=== PATIENT | male | born 1950 | race Caucasian/White ===

== ENCOUNTER 2018-05-09 09:54 | Inpatient (IN) ==
[2018-05-09 10:14] LABS: Baso # (Auto) 0.1 th/mm3 (0.0-0.2); Baso % (Auto) 0.5 % (0.0-2.0); Eos # (Auto) 0.1 th/mm3 (0.0-0.4); Eos % (Auto) 1.1 % (0.0-4.0); Hematocrit 38.6 % (39.0-51.0); Lymph # (Auto) 1.5 th/mm3 (1.0-4.8); Lymph % (Auto) 12.8 % (9.0-44.0); Mean Corpuscular HGB Conc 33.8 % (32.0-36.0); Mean Corpuscular Hemoglobin 35.6 pg (27.0-34.0); Mean Corpuscular Volume 105.4 fL (80.0-100.0); Mean Platelet Volume 9.2 fL (7.0-11.0); Mono # (Auto) 0.5 th/mm3 (0.0-0.9); Mono % (Auto) 4.4 % (0.0-8.0); Neut # (Auto) 9.2 th/mm3 (1.8-7.7); Neut % (Auto) 81.2 % (16.0-70.0); Platelet Count 186 th/mm3 (150-450); Red Blood Count 3.66 mil/mm3 (4.50-5.90); White Blood Count 11.4 th/mm3 (4.0-11.0)
--- NOTE | 2018-05-09 10:15 | XR ---
EXAM DATE: 05/09/2018 9:55 AM EDT AGE/SEX: 89 years / Male INDICATIONS: Trauma alert, fall. CLINICAL DATA: This is the patient's initial encounter. Patient reports that signs and symptoms have been present for 1 day and indicates a pain score of 8/10. MEDICAL/SURGICAL HISTORY: Non-responsive. Non-responsive. COMPARISON: . FINDINGS: Lungs are under aerated but clear. The heart and pulmonary vascularity are normal. Probable fracture right proximal humerus. CONCLUSION: Lungs are under aerated. Probable fracture right humerus. Shoulder films are suggested. Electronically signed by: Toño Burks MD 05/09/2018 10:14 AM EDT
--- NOTE | 2018-05-09 10:17 | XR ---
EXAM DATE: 05/09/2018 12:00 AM EDT AGE/SEX: 89 years / Male INDICATIONS: Trauma alert, fall. CLINICAL DATA: This is the patient's initial encounter. Patient reports that signs and symptoms have been present for 1 day and indicates a pain score of Nonresponsive. MEDICAL/SURGICAL HISTORY: Non-responsive. Non-responsive. COMPARISON: [facility] – [place], PELVIS AP 1V, 05/09/2018. . FINDINGS: Ramus fracture on the right. Anatomic alignment about the right hip without fracture. CT scan pending . CONCLUSION: Negative for hip fracture Ramus fracture. Electronically signed by: Toño Burks MD 05/09/2018 10:16 AM EDT
--- NOTE | 2018-05-09 10:17 | XR ---
EXAM DATE: 05/09/2018 9:55 AM EDT AGE/SEX: 89 years / Male INDICATIONS: Trauma alert, fall. CLINICAL DATA: This is the patient's initial encounter. Patient reports that signs and symptoms have been present for 1 day and indicates a pain score of Nonresponsive. MEDICAL/SURGICAL HISTORY: Non-responsive. Non-responsive. COMPARISON: No prior exams available for comparison. FINDINGS: Degenerative changes about both hips. Anatomic alignment. Fracture superior and inferior pubic ramus on the right. CT scan pending. CONCLUSION: Ramus fracture on the right. Anatomic alignment about both hips. Electronically signed by: Toño Burks MD 05/09/2018 10:16 AM EDT
--- NOTE | 2018-05-09 10:18 | XR ---
EXAM DATE: 05/09/2018 10:00 AM EDT AGE/SEX: 89 years / Male INDICATIONS: Trauma alert, fall. CLINICAL DATA: This is the patient's initial encounter. Patient reports that signs and symptoms have been present for 1 day and indicates a pain score of 10/10. MEDICAL/SURGICAL HISTORY: Non-responsive. Non-responsive. COMPARISON: No prior exams available for comparison. FINDINGS: Fracture proximal humerus with degenerative changes about the right shoulder. Anatomic alignment. CONCLUSION: Fracture proximal humerus. Electronically signed by: Toño Burks MD 05/09/2018 10:17 AM EDT
--- NOTE | 2018-05-09 10:20 | CT ---
EXAM DATE: 05/09/2018 10:03 AM EDT AGE/SEX: 89 years / Male INDICATIONS: Trauma alert, patient fell off ladder CLINICAL DATA: This is the patient's initial encounter. Patient reports that signs and symptoms have been present for 1 day and indicates a pain score of Nonresponsive. MEDICAL/SURGICAL HISTORY: None. None. RADIATION DOSE: 64.63 CTDI (mGy) COMPARISON: No prior exams available for comparison. TECHNIQUE: CT of the head without contrast. Using automated exposure control and adjustment of the mA and/or kV according to patient size, radiation dose was kept as low as reasonably achievable to ob tain optimal diagnostic quality images. DICOM format image data is available electronically for revi ew and comparison. FINDINGS: Cerebrum: The ventricles are normal for age. No evidence of midline shift, mass lesion, hemorrhage or acute infarction. No extraaxial fluid collections are seen. Posterior Fossa: The cerebellum and brainstem are intact. The 4th ventricle is midline. The cerebe llopontine angle is unremarkable. Extracranial: The visualized portion of the orbits is intact. Skull: The calvaria is intact. No evidence of skull fracture. CONCLUSION: 1. Negative for an acute process . Electronically signed by: Toño Burks MD 05/09/2018 10:19 AM EDT
[2018-05-09 10:27] LABS: Activated Partial Thrombo Time 24.6 sec (24.3-30.1); Prothrombin Time 10.6 sec (9.8-11.6)
[2018-05-09] MEDS ORDERED: HYDROmorphone PF Inj 2 MG/ML Vial IV.PUSH ONE (10:33)
--- NOTE | 2018-05-09 10:44 | CT ---
EXAM DATE: 05/09/2018 10:03 AM EDT AGE/SEX: 89 years / Male INDICATIONS: Trauma alert, patient fell off ladder CLINICAL DATA: This is the patient's initial encounter. Patient reports that signs and symptoms have been present for 1 day and indicates a pain score of Nonresponsive. MEDICAL/SURGICAL HISTORY: None. None. ORAL CONTRAST: No oral contrast ingested. RADIATION DOSE: 6.08 CTDI (mGy) ; Combined studies COMPARISON: No prior exams available for comparison. TECHNIQUE: Multiple contiguous axial images were obtained through the abdomen and pelvis following b olus infusion of 100 ml Omnipaque 350 (iohexol) nonionic water-soluble contrast as a cumulative dos e for multiple exams. No oral contrast ingested. Using automated exposure control and adjustment of the mA and/or kV according to patient size, radiation dose was kept as low as reasonably achievable t o obtain optimal diagnostic quality images. DICOM format image data is available electronically for review and comparison. FINDINGS: Lower Lungs: The visualized lower lungs are clear. Liver: The liver has a homogeneous density without space-occupying lesion. There is no dilation of th e biliary tree. Spleen: Homogeneous density without enlargement. Pancreas: Unremarkable without mass or calcification. Kidneys: Normal in size and shape. No evidence of mass or hydronephrosis. Adrenal Glands: Unremarkable. Aorta: The aorta and proximal iliac vessels are grossly unremarkable without aneurysmal dilation. Bowel/Mesentery: Uncomplicated colonic diverticulosis is noted. No acute diverticulitis is noted. Th ere is a diverticulum extending from the fundus of the stomach. Abdominal Wall: Intact. Retroperitoneum: No evidence of adenopathy in the retrocrural, para-aortic, or deep pelvic regions. Bladder: Contours are smooth. Reproductive Organs: No abnormal masses or calcifications seen. There is some presacral increased de nsity suggestive of hemorrhage from the adjacent sacral fracture. Inguinal: The inguinal region is unremarkable without evidence of adenopathy. Bony Structures: There is an acute comminuted fracture involving the inferior pubic ramus on the rig ht. There is also an acute fracture involving the right sacrum. There is a subtle nondisplaced fractu re involving the junction of the right superior pubic ramus and acetabulum anteriorly. Degenerative c hanges are noted throughout the thoracolumbar spine. Mild compression deformities are noted involving the lowest six thoracic vertebral bodies which are indeterminate in age but are likely chronic. Dege nerative changes and scoliosis of the thoracolumbar spine are noted. CONCLUSION: 1. Acute comminuted fracture involving the inferior pubic ramus on the right. There is also an acute fracture involving the right sacrum. There is a subtle nondisplaced fracture involving the junction of the right superior pubic ramus and acetabulum anteriorly. Degenerative changes are noted throughou t the thoracolumbar spine. Mild compression deformities are noted involving the lowest six thoracic v ertebral bodies which are indeterminate in age but are likely chronic. 2. Some presacral increased density suggestive of hemorrhage from the adjacent sacral fracture. 3. Uncomplicated colonic diverticulosis. 4. Degenerative changes and scoliosis of the thoracolumbar spine are noted. Electronically signed by: Singh Lundberg MD 05/09/2018 10:43 AM EDT
--- NOTE | 2018-05-09 10:49 | CT ---
EXAM DATE: 05/09/2018 10:03 AM EDT AGE/SEX: 89 years / Male INDICATIONS: Trauma alert, patient fell off ladder CLINICAL DATA: This is the patient's initial encounter. Patient reports that signs and symptoms have been present for 1 day and indicates a pain score of Nonresponsive. MEDICAL/SURGICAL HISTORY: None. None. RADIATION DOSE: 23.80 CTDI (mGy) COMPARISON: No prior exams available for comparison. TECHNIQUE: Contiguous axial images were obtained using helical multirow detector technique. The vol umetric data was post-processed with multiplanar reconstruction in oblique axial, sagittal, and coron al planes. Using automated exposure control and adjustment of the mA and/or kV according to patient s ize, radiation dose was kept as low as reasonably achievable to obtain optimal diagnostic quality hien ges. DICOM format image data is available electronically for review and comparison. FINDINGS: Vertebrae: Normal vertebral body height. Alignment: Normal. No subluxation. C2-3: The bony spinal canal is normal in size. No evidence of disc bulge or herniation. The neural foramina are bilaterally patent. C3-4: Mild uncinate ridging without significant neural foraminal encroachment or spinal stenosis. C4-5: The bony spinal canal is normal in size. No evidence of disc bulge or herniation. The neural foramina are bilaterally patent. C5-6: Moderate uncinate ridging with minimal bilateral neural foraminal encroachment worse on the ri ght. Spinal stenosis is mild C6-7: Moderate uncinate ridging with minimal neural foraminal encroachment. C7-T1: The bony spinal canal is normal in size. No evidence of disc bulge or herniation. The neura l foramina are bilaterally patent. CONCLUSION: 1. Mild degenerative changes. Anatomic alignment without fracture. Electronically signed by: Toño Burks MD 05/09/2018 10:48 AM EDT
--- NOTE | 2018-05-09 10:56 | CT ---
EXAM DATE: 05/09/2018 12:00 AM EDT AGE/SEX: 89 years / Male INDICATIONS: Trauma alert, patient fell off ladder CLINICAL DATA: This is the patient's initial encounter. Patient reports that signs and symptoms have been present for 1 day and indicates a pain score of Nonresponsive. MEDICAL/SURGICAL HISTORY: None. None. RADIATION DOSE: 6.08 CTDI (mGy) ; Combined studies COMPARISON: No prior exams available for comparison. TECHNIQUE: Multiple contiguous axial images were obtained through the chest during bolus infusion of 100 ml Omnipaque 350 (iohexol) nonionic water-soluble contrast as a cumulative dose for multiple ex ams. Images were obtained in suspended respiration using multiple row detector helical technique. Using automated exposure control and adjustment of the mA and/or kV according to patient size, radiat ion dose was kept as low as reasonably achievable to obtain optimal diagnostic quality images. DICOM format image data is available electronically for review and comparison. FINDINGS: Lungs: The lungs are symmetrically aerated. No infiltrates or nodular densities are seen. Mediastinum: There is good visualization of the great vessels of the middle mediastinum. No evidenc e of mediastinal or hilar adenopathy/mass. Pleurae: No evidence of focal thickening or pleural effusion. Axillae: Unremarkable. Bony Structures: There is an acute comminuted displaced fracture involving the right proximal humeru s. Degenerative changes and scoliosis of the thoracic spine are noted. Multiple mild compression defo rmities are noted involving the lowest six thoracic vertebral bodies which are likely chronic. Clinic al correlation is recommended. Miscellaneous: The examination was extended to include the upper abdomen, and both adrenal glands ar e normal in size and configuration. CONCLUSION: 1. Acute comminuted displaced fracture involving the right proximal humerus. 2. Degenerative changes and scoliosis of the thoracic spine are noted. 3. Multiple mild compression deformities are noted involving the lowest six thoracic vertebral imani s which are likely chronic. Clinical correlation is recommended. Electronically signed by: Singh Lundberg MD 05/09/2018 10:54 AM EDT
--- NOTE | 2018-05-09 11:10 | ED ---
HPI General Chief Complaint: Trauma Alert Stated Complaint: Trauma alert Time Seen by Provider: 05/09/18 10:33 Source: patient and EMS Mode of arrival: EMS Limitations: physical limitation History of Present Illness HPI narrative: 67-year-old male complains of right shoulder pain, right hip pain. Patient fell off a ladder about 10 feet height this morning. Patient denies loss of consciousness. Patient denies any headache or neck pain. Patient complains of sharp pain localized to right shoulder and posterior aspect the right hip. Patient denies any chest pain or shortness of breath. Patient denies abdominal pain. Patient denies any focal weakness or numbness of the extremity. Patient states that he is on blood thinner however unable to tell me the name of the medication. Patient has history of TIA. Related Data Home Medications Medication Instructions Recorded Confirmed Unable to Obtain Home Meds 05/09/18 05/09/18 Allergies Allergy/AdvReac Type Severity Reaction Status Date / Time No Known Allergies Allergy Unverified 05/09/18 10:36 Review of Systems ROS: all other systems reviewed are negative [facility] Medical History Medical History CVA (cerebral vascular accident) (Acute) HTN (hypertension) (Acute) Social History Social History Substance History: No History of Abuse Smoking Status: Never smoker How Often Do You Have a Drink Containing Alcohol: Never Recent Travel in [facility] within the Last 8 Weeks: No Recent Out of Country Travel within the Last 8 Weeks: No Immunization History Tetanus Immunization: <5 Years Hx Influenza Vaccine This Season: No Exam Narrative Exam Narrative: GENERAL: Well-nourished, well-developed patient. SKIN: Focused skin assessment warm/dry. HEAD: Normocephalic. EYES: No scleral icterus. No injection or drainage. Pupils 1.5 mm equal reactive. NECK: Supple, trachea midline. No JVD or lymphadenopathy. No neck tenderness on palpation. CARDIOVASCULAR: Regular rate and rhythm without murmurs, gallops, or rubs. RESPIRATORY: Breath sounds equal bilaterally. No accessory muscle use. GASTROINTESTINAL: Abdomen soft, non-tender, nondistended. MUSCULOSKELETAL: Patient has moderate swelling with moderate tenderness to palpation of the right shoulder joint. Limited range of motion at the right shoulder secondary to pain. Sensory motor function distally intact. Patient has mild to moderate tenderness palpation posterior aspect the right hip joint. Full range of motion the right hip joint. Neurologic exam normal. BACK: Nontender without obvious deformity. No CVA tenderness. Course Initial Documented Vital Signs Pulse Oximetry 98 05/09/18 10:09 Last Documented Vital Signs Pulse Rate 63 05/09/18 10:32 Respiratory Rate 17 05/09/18 10:32 Blood Pressure 168/70 H 05/09/18 10:32 Pulse Oximetry 98 05/09/18 10:32 Medical Decision Making MDM Narrative Medical decision making narrative: 67-year-old male with right shoulder and right hip injury. Status post fall off a ladder. Medical Screen Exam Complete: Yes Emergency Medical Condition: Yes Lab Data Lab results reviewed: Yes I reviewed the patient's lab results. Result diagrams: 05/09/18 09:57 Lab Results 05/09/18 05/09/18 05/09/18 Range/Units 09:57 09:57 09:57 WBC 11.4 H (4.0-11.0) th/mm3 RBC 3.66 L (4.50-5.90) mil/mm3 Hgb 13.0 (13.0-17.0) gm/dL POC Hgb (Calc) 12.2 L (13.0-17.0) g/dL Hct 38.6 L (39.0-51.0) % POC Hct 36.0 L (39-51.0) % MCV 105.4 H (80.0-100.0) fL MCH 35.6 H (27.0-34.0) pg MCHC 33.8 (32.0-36.0) % RDW 12.0 (11.6-17.2) % Plt Count 186 (150-450) th/mm3 MPV 9.2 (7.0-11.0) fL Neut % (Auto) 81.2 H (16.0-70.0) % Lymph % (Auto) 12.8 (9.0-44.0) % Hancock % (Auto) 4.4 (0.0-8.0) % Eos % (Auto) 1.1 (0.0-4.0) % Baso % (Auto) 0.5 (0.0-2.0) % Neut # (Auto) 9.2 H (1.8-7.7) th/mm3 Lymph # (Auto) 1.5 (1.0-4.8) th/mm3 Hancock # (Auto) 0.5 (0.0-0.9) th/mm3 Eos # (Auto) 0.1 (0.0-0.4) th/mm3 Baso # (Auto) 0.1 (0.0-0.2) th/mm3 WBC Differential . Differential Comment Auto diff final PT 10.6 (9.8-11.6) sec INR 1.0 Ratio APTT 24.6 (24.3-30.1) sec POC Sodium 138 (137-144) mmol/L POC Potassium 4.3 (3.6-5.0) mmol/L POC Chloride 103 (102-111) mmol/L POC BUN 11 (5-21) mg/dL POC Creatinine 0.9 (0.6-1.3) mg/dL POC Glucose 129 H (68-110) mg/dL Blood Type Antibody Screen 05/09/18 Range/Units 09:57 WBC (4.0-11.0) th/mm3 RBC (4.50-5.90) mil/mm3 Hgb (13.0-17.0) gm/dL POC Hgb (Calc) (13.0-17.0) g/dL Hct (39.0-51.0) % POC Hct (39-51.0) % MCV (80.0-100.0) fL MCH (27.0-34.0) pg MCHC (32.0-36.0) % RDW (11.6-17.2) % Plt Count (150-450) th/mm3 MPV (7.0-11.0) fL Neut % (Auto) (16.0-70.0) % Lymph % (Auto) (9.0-44.0) % Hancock % (Auto) (0.0-8.0) % Eos % (Auto) (0.0-4.0) % Baso % (Auto) (0.0-2.0) % Neut # (Auto) (1.8-7.7) th/mm3 Lymph # (Auto) (1.0-4.8) th/mm3 Hancock # (Auto) (0.0-0.9) th/mm3 Eos # (Auto) (0.0-0.4) th/mm3 Baso # (Auto) (0.0-0.2) th/mm3 WBC Differential Differential Comment PT (9.8-11.6) sec INR Ratio APTT (24.3-30.1) sec POC Sodium (137-144) mmol/L POC Potassium (3.6-5.0) mmol/L POC Chloride (102-111) mmol/L POC BUN (5-21) mg/dL POC Creatinine (0.6-1.3) mg/dL POC Glucose (68-110) mg/dL Blood Type O Positive Antibody Screen Negative Imaging Data Attestation: I personally reviewed and interpreted this imaging study as follows : Radiologist's impression: Chest CT 05/09/18 00:00 CONCLUSION: 1. Acute comminuted displaced fracture involving the right proximal humerus. 2. Degenerative changes and scoliosis of the thoracic spine are noted. 3. Multiple mild compression deformities are noted involving the lowest six thoracic vertebral bodies which are likely chronic. Clinical correlation is recommended. Hip X-Ray 05/09/18 00:00 CONCLUSION: Negative for hip fracture Ramus fracture. Chest X-Ray 05/09/18 09:55 CONCLUSION: Lungs are under aerated. Probable fracture right humerus. Shoulder films are suggested. Pelvis X-Ray 05/09/18 09:55 CONCLUSION: Ramus fracture on the right. Anatomic alignment about both hips. Shoulder X-Ray 05/09/18 10:00 CONCLUSION: Fracture proximal humerus. Abdomen/Pelvis CT 05/09/18 10:01 CONCLUSION: 1. Acute comminuted fracture involving the inferior pubic ramus on the right. There is also an acute fracture involving the right sacrum. There is a subtle nondisplaced fracture involving the junction of the right superior pubic ramus and acetabulum anteriorly. Degenerative changes are noted throughout the thoracolumbar spine. Mild compression deformities are noted involving the lowest six thoracic vertebral bodies which are indeterminate in age but are likely chronic. 2. Some presacral increased density suggestive of hemorrhage from the adjacent sacral fracture. 3. Uncomplicated colonic diverticulosis. 4. Degenerative changes and scoliosis of the thoracolumbar spine are noted. Cervical Spine CT 05/09/18 10:01 CONCLUSION: 1. Mild degenerative changes. Anatomic alignment without fracture. Head CT 05/09/18 10:01 CONCLUSION: 1. Negative for an acute process . Discharge Plan Discharge Disposition Patient Disposition: 30 Still Patient Discharge Details Diagnosis: Fracture of humerus, right, closed, Fracture of multiple pubic rami, Closed fracture of sacrum Physicians Team ED Provider: Reza Bragg Primary Care Provider: UNKNOWN, Rxs /Orders / Referrals /Forms Prescriptions: No Action Unable to Obtain Home Meds RF: 0 Status ED Status: With Doctor
--- NOTE | 2018-05-09 13:47 | P.HPCC ---
History of Present Illness Primary Care Physician: UNKNOWN History of Present Illness: 67 y.o male fell from the ladder 10 feet,c/o pain right humerus and pelvis was level 2 trauma alert-worked up by the ER.HD normal,neuro intact. Inpatient Certification: I certify that the inpatient services were ordered in accordance with Medicare regulations governing the order. This includes certification that hospital inpatient services are reasonable and necessary and in the case of services not specified as inpatient-only under 42 CFR 419.22(n), that they are appropriately provided as inpatient services in accordance to with the 2-midnight benchmark under 43 CFR 412.3(e) Estimated Total Length of Stay (Days): 3 Plans for Post Hospital Care: Not yet determined Review of Systems All other systems reviewed negative except as stated in HPI [facility] - History History Provided By: Patient - Medical History Medical History: Medical History (Last Reviewed 05/09/18 @ 11:05 by Reza Bragg MD) CVA (cerebral vascular accident) HTN (hypertension) - Tobacco History Smoking Status: Never smoker - Alcohol History How Often Do You Have a Drink Containing Alcohol: Never - Substance Use History Substance History: No History of Abuse - Travel History Recent Travel in the [place] Within the Last 8 Weeks: No Recent Travel Out of the Country Within the Last 8 Weeks: No - Immunization History Tetanus Immunization: <5 Years Hx Influenza Vaccine This Season: No Medications and Allergies Active Medications: Active Medications Al Hydroxide/Mg Hydroxide (Milk Of Magnesia Liq) 30 ml PO BID [facility] Chlorhexidine Gluconate (Chlorhexidine 2% Cloth) 3 pack TOPICAL DAILY@0400 [facility] Stop: 05/15/18 03:59 Chlorhexidine Gluconate (Chlorhexidine 2% Cloth) 3 pack TOPICAL DAILY@0400 PRN PRN Reason: Extra cloth needed Stop: 05/15/18 03:59 Docusate Sodium (Colace) 100 mg PO BID [facility] Enalaprilat (Vasotec Inj) 1.25 mg IV.PUSH Q8H PRN PRN Reason: Blood pressure 180/95 Lactulose (Lactulose Liq) 30 ml PO DAILY PRN PRN Reason: CONSTIPATION Morphine Sulfate (Morphine Inj) 2 mg IV.PUSH Q3H PRN PRN Reason: BREAKTHROUGH PAIN Ondansetron HCl (Zofran Inj) 4 mg IV.PUSH Q6H PRN PRN Reason: NAUSEA OR VOMITING Oxycodone/Acetaminophen (Percocet 7.5/325 Mg) 1 tab PO Q4H PRN PRN Reason: Acute Pain 6-10 Oxycodone/Acetaminophen (Percocet 5/325 Mg) 1 tab PO Q4H PRN PRN Reason: Acute Pain 1-5 Pantoprazole Sodium (Protonix Inj) 40 mg IV.PUSH Q24H [facility] Sodium Chloride (Ns Flush) 2 ml IV.FLUSH UNSCH PRN PRN Reason: FLUSH AFTER USING IV ACCESS Allergies Allergy/AdvReac Type Severity Reaction Status Date / Time No Known Allergies Allergy Unverified 05/09/18 10:36 Home Medications Medication Instructions Recorded Confirmed Type Unable to Obtain Home Meds 05/09/18 05/09/18 History Results - Labs CBC & Chem 7: 05/09/18 09:57 Labs: Short CBC 05/09/18 Range/Units 09:57 WBC 11.4 H (4.0-11.0) th/mm3 Hgb 13.0 (13.0-17.0) gm/dL Hct 38.6 L (39.0-51.0) % Plt Count 186 (150-450) th/mm3 - Imaging Impressions Chest CT 05/09/18 00:00 CONCLUSION: 1. Acute comminuted displaced fracture involving the right proximal humerus. 2. Degenerative changes and scoliosis of the thoracic spine are noted. 3. Multiple mild compression deformities are noted involving the lowest six thoracic vertebral bodies which are likely chronic. Clinical correlation is recommended. Hip X-Ray 05/09/18 00:00 CONCLUSION: Negative for hip fracture Ramus fracture. Chest X-Ray 05/09/18 09:55 CONCLUSION: Lungs are under aerated. Probable fracture right humerus. Shoulder films are suggested. Pelvis X-Ray 05/09/18 09:55 CONCLUSION: Ramus fracture on the right. Anatomic alignment about both hips. Shoulder X-Ray 05/09/18 10:00 CONCLUSION: Fracture proximal humerus. Abdomen/Pelvis CT 05/09/18 10:01 CONCLUSION: 1. Acute comminuted fracture involving the inferior pubic ramus on the right. There is also an acute fracture involving the right sacrum. There is a subtle nondisplaced fracture involving the junction of the right superior pubic ramus and acetabulum anteriorly. Degenerative changes are noted throughout the thoracolumbar spine. Mild compression deformities are noted involving the lowest six thoracic vertebral bodies which are indeterminate in age but are likely chronic. 2. Some presacral increased density suggestive of hemorrhage from the adjacent sacral fracture. 3. Uncomplicated colonic diverticulosis. 4. Degenerative changes and scoliosis of the thoracolumbar spine are noted. Cervical Spine CT 05/09/18 10:01 CONCLUSION: 1. Mild degenerative changes. Anatomic alignment without fracture. Head CT 05/09/18 10:01 CONCLUSION: 1. Negative for an acute process . Exam Vital signs: Vital Signs 05/09/18 10:09 05/09/18 10:32 05/09/18 11:47 Pulse Rate 63 63 Respiratory Rate 17 17 Blood Pressure 168/70 H 148/65 H Pulse Oximetry 98 98 96 05/09/18 12:02 Pulse Rate Respiratory Rate 16 Blood Pressure Pulse Oximetry Intake & Output 05/08/18 05/09/18 05/09/18 18:59 06:59 18:59 Weight 76.204 kg - Constitutional no acute distress - Routine HEENT Exam Head: Present: normocephalic, atraumatic Eye: Present: EOMI, PERRL, normal accommodation ENT: Present: mucous membranes moist, oropharynx clear, external ear normal, TM' s clear bilaterally - Routine Neck Exam Present: supple, full ROM, trachea midline - Routine Respiratory Exam Present: CTA bilaterally - Routine Cardiovascular Exam Present: RRR - Routine Abdominal Exam Present: soft, normoactive bowel sounds - Routine Extremities Exam Present: full ROM, pulses intact, normal capillary refill Comments: swelling right UE - Routine Skin Exam Present: intact - Routine Neurological Exam Present: alert, oriented X3 Caprini VTE Risk Assessment Caprini VTE Risk Assessment: Moderate/High Risk (score >= 2) VTE Pharmacological Exception Reason: High risk for bleeding (TRA) Caprini Risk Assessment Model: Point Value = 1 Point Value = 2 Point Value = 3 Point Value = 5 Age 41-60 Minor surgery BMI > 25 kg/m2 Swollen legs Varicose veins or History of unexplained or recurrent spontaneous Oral contraceptives or hormone replacement Sepsis (< 1 month) Serious lung disease, including pneumonia (< 1 month) Abnormal pulmonary function Acute myocardial infarction Congestive heart failure (< 1 month) History of inflammatory bowel disease Medical patient at bed rest Age 61-74 Arthroscopic surgery Major open surgery (> 45 min) Laparoscopic surgery (> 45 min) Malignancy Confined to bed (> 72 hours) Immobilizing plaster cast Central venous access Age >= 75 History of VTE Family history of VTE Factor V Leiden Prothrombin [id number] Lupus anticoagulant Anticardiolipin antibodies Elevated serum homocysteine Heparin-induced thrombocytopenia Other congenital or acquired thrombophilia Stroke (< 1 month) Elective arthroplasty Hip, pelvis, or leg fracture Acute spinal cord injury (< 1 month) Prophylaxis Regimen: Total Risk Factor Score Risk Level Prophylaxis Regimen 0-1 Low Early ambulation 2 Moderate Order ONE of the following: *Sequential Compression Device (SCD) *Heparin 5000 units SQ BID 3-4 Higher Order ONE of the following medications: *Heparin 5000 units SQ TID *Enoxaparin/Lovenox 40 mg SQ daily (WT < 150 kg, CrCl > 30 mL/min) *Enoxaparin/Lovenox 30 mg SQ daily (WT < 150 kg, CrCl > 10-29 mL/min) *Enoxaparin/Lovenox 30 mg SQ BID (WT < 150 kg, CrCl > 30 mL/min) AND/OR *Sequential Compression Device (SCD) 5 or more Highest Order ONE of the following medications: *Heparin 5000 units SQ TID (Preferred with Epidurals) *Enoxaparin/Lovenox 40 mg SQ daily (WT < 150 kg, CrCl > 30 mL/min) *Enoxaparin/Lovenox 30 mg SQ daily (WT < 150 kg, CrCl > 10-29 mL/min) *Enoxaparin/Lovenox 30 mg SQ BID (WT < 150 kg, CrCl > 30 mL/min) AND *Sequential Compression Device (SCD) Assessment and Plan - Assessment and Plan Plan: right humerus fx sacral fx pubic rami fx admit to floor pain control sling to [facility] consult home meds-patient claims to be on blood thinners-cannot remember the name
[2018-05-09] MEDS: Morphine Sulfate Inj 2 MG/ML Vial IV.PUSH PRN ×3 (14:37→20:16)
[2018-05-09] MEDS: Pantoprazole Inj 40 MG Vial IV.PUSH SCH (16:07)
[2018-05-09] MEDS: Docusate Sodium 100 MG Capsule PO SCH (20:17)
--- NOTE | 2018-05-09 22:29 | P.CONOP ---
[facility] Orthopedics Consult Note - [facility] Consult date: 05/09/18 Consult reason: fracture Chief complaint: Fracture right humerus. Pelvis fracture Narrative: 67 year old RHD male presents after fall from ladder with right shoulder and right hip pain. States he was a few feet up on the ladder when the bottom slipped from under him causing him to fall on the right side. He states he did hit his head, but did not lose consciousness. Currently most severe pain is in the right shoulder. It is exacerbated with any movement. He also notes some tingling in the ulnar nerve distribution. Pain is improved with ice and sling immobilization. He also notes pain to the right hip which is worse with weight bearing and better with rest. Denies any numbness or tingling in the lower extremities. No bowel or bladder issues. Of note, he is on a blood thinner at home for a TIA but does not recall which one. Review of Systems All other systems reviewed negative except as stated in HPI Musculoskeletal: Reports joint pain, Reports joint swelling PMFSH - History History Provided By: Patient - Medical History Medical History: Medical History (Last Reviewed 05/09/18 @ 21:57 by Caitlin Montano MD) CVA (cerebral vascular accident) HTN (hypertension) - Social History I have reviewed the patient's Social History: Yes - Tobacco History Second Hand Smoke Exposure: No Smoking Status: Never smoker - Alcohol History How Often Do You Have a Drink Containing Alcohol: 2 to 4 times a month - Substance Use History Substance History: No History of Abuse - Travel History Recent Travel in the [place] Within the Last 8 Weeks: No Recent Travel Out of the Country Within the Last 8 Weeks: No - Immunization History Tetanus Immunization: <5 Years Hx Influenza Vaccine This Season: No Medications and Allergies Active Medications: Active Medications Al Hydroxide/Mg Hydroxide (Milk Of Reece Bowles) 30 ml PO BID [facility] Last Admin: 05/09/18 20:17 Dose: 30 ml Chlorhexidine Gluconate (Chlorhexidine 2% Cloth) 3 pack TOPICAL DAILY@0400 [facility] Stop: 05/15/18 03:59 Chlorhexidine Gluconate (Chlorhexidine 2% Cloth) 3 pack TOPICAL DAILY@0400 PRN PRN Reason: Extra cloth needed Stop: 05/15/18 03:59 Docusate Sodium (Colace) 100 mg PO BID [facility] Last Admin: 05/09/18 20:17 Dose: 100 mg Enalaprilat (Vasotec Inj) 1.25 mg IV.PUSH Q8H PRN PRN Reason: Blood pressure 180/95 Lactulose (Lactulose Liq) 30 ml PO DAILY PRN PRN Reason: CONSTIPATION Morphine Sulfate (Morphine Inj) 2 mg IV.PUSH Q3H PRN PRN Reason: BREAKTHROUGH PAIN Last Admin: 05/09/18 20:16 Dose: 2 mg Ondansetron HCl (Zofran Inj) 4 mg IV.PUSH Q6H PRN PRN Reason: NAUSEA OR VOMITING Oxycodone/Acetaminophen (Percocet 7.5/325 Mg) 1 tab PO Q4H PRN PRN Reason: Acute Pain 6-10 Last Admin: 05/09/18 18:40 Dose: 1 tab Oxycodone/Acetaminophen (Percocet 5/325 Mg) 1 tab PO Q4H PRN PRN Reason: Acute Pain 1-5 Pantoprazole Sodium (Protonix Inj) 40 mg IV.PUSH Q24H [facility] Last Admin: 05/09/18 16:07 Dose: 40 mg Sodium Chloride (Ns Flush) 2 ml IV.FLUSH UNSCH PRN PRN Reason: FLUSH AFTER USING IV ACCESS Allergies Allergy/AdvReac Type Severity Reaction Status Date / Time No Known Allergies Allergy Unverified 05/09/18 10:36 Home Medications Medication Instructions Recorded Confirmed Type acetaminophen 325 mg PO TID 05/10/18 05/10/18 History clopidogrel 75 mg PO DAILY 05/10/18 05/10/18 History lisinopril 10 mg PO DAILY 05/10/18 05/10/18 History meloxicam 7.5 mg PO DAILY 05/10/18 05/10/18 History simvastatin 40 mg PO QPM 05/10/18 05/10/18 History Exam Vital signs: Vital Signs 05/09/18 10:09 05/09/18 10:32 05/09/18 11:47 Temperature Pulse Rate 63 63 Respiratory Rate 17 17 Blood Pressure 168/70 H 148/65 H Pulse Oximetry 98 98 96 05/09/18 12:02 05/09/18 14:10 05/09/18 16:00 Temperature 98.4 F 98.2 F Pulse Rate 59 L 64 Respiratory Rate 16 16 16 Blood Pressure 140/65 145/68 H Pulse Oximetry 99 98 05/09/18 20:00 Temperature 98.5 F Pulse Rate 69 Respiratory Rate 17 Blood Pressure 120/64 Pulse Oximetry 93 L Intake & Output 05/09/18 05/09/18 05/10/18 06:59 18:59 06:59 Weight 76.204 kg Other: # Voids 3 Date of Last Bowel Movement 05/09/18 05/09/18 Weight On Admission 76.204 kg - Constitutional no acute distress, cooperative - Routine HEENT Exam Head: Present: normocephalic, atraumatic - Routine Neck Exam Present: supple, full ROM - Routine Respiratory Exam Absent: accessory muscle use - Routine Cardiovascular Exam Present: RRR - Detailed Upper Extremity Exam Shoulder/Upper Arm: Right swelling, Right tenderness, Right pain with active ROM , Right pain with passive ROM - Detailed Lower Extremity Exam Hip: Right full ROM - Routine Back/Spine/Pelvis Exam Pelvis: Present: pain with lateral compression of the pelvis Comments: no pain with log roll or hip ROM, neurovascularly intact distally - Routine Skin Exam Present: intact - Routine Neurological Exam Present: alert, oriented X3 Results - Labs Result Diagrams: 05/11/18 03:49 05/11/18 03:49 Labs: Laboratory Results - last 24 hr 05/09/18 05/09/18 05/09/18 09:57 09:57 09:57 WBC 11.4 H RBC 3.66 L Hgb 13.0 POC Hgb (Calc) 12.2 L Hct 38.6 L POC Hct 36.0 L MCV 105.4 H MCH 35.6 H MCHC 33.8 RDW 12.0 Plt Count 186 MPV 9.2 Neut % (Auto) 81.2 H Lymph % (Auto) 12.8 Alger % (Auto) 4.4 Eos % (Auto) 1.1 Baso % (Auto) 0.5 Neut # (Auto) 9.2 H Lymph # (Auto) 1.5 Alger # (Auto) 0.5 Eos # (Auto) 0.1 Baso # (Auto) 0.1 WBC Differential . Differential Comment Auto diff final PT 10.6 INR 1.0 APTT 24.6 POC Sodium 138 POC Potassium 4.3 POC Chloride 103 POC BUN 11 POC Creatinine 0.9 POC Glucose 129 H Blood Type Antibody Screen 05/09/18 09:57 WBC RBC Hgb POC Hgb (Calc) Hct POC Hct MCV MCH MCHC RDW Plt Count MPV Neut % (Auto) Lymph % (Auto) Alger % (Auto) Eos % (Auto) Baso % (Auto) Neut # (Auto) Lymph # (Auto) Alger # (Auto) Eos # (Auto) Baso # (Auto) WBC Differential Differential Comment PT INR APTT POC Sodium POC Potassium POC Chloride POC BUN POC Creatinine POC Glucose Blood Type O Positive Antibody Screen Negative - Diagnostic results Imaging: Impressions Chest CT 05/09/18 00:00 CONCLUSION: 1. Acute comminuted displaced fracture involving the right proximal humerus. 2. Degenerative changes and scoliosis of the thoracic spine are noted. 3. Multiple mild compression deformities are noted involving the lowest six thoracic vertebral bodies which are likely chronic. Clinical correlation is recommended. Hip X-Ray 05/09/18 00:00 CONCLUSION: Negative for hip fracture Ramus fracture. Chest X-Ray 05/09/18 09:55 CONCLUSION: Lungs are under aerated. Probable fracture right humerus. Shoulder films are suggested. Pelvis X-Ray 05/09/18 09:55 CONCLUSION: Ramus fracture on the right. Anatomic alignment about both hips. Shoulder X-Ray 05/09/18 10:00 CONCLUSION: Fracture proximal humerus. Abdomen/Pelvis CT 05/09/18 10:01 CONCLUSION: 1. Acute comminuted fracture involving the inferior pubic ramus on the right. There is also an acute fracture involving the right sacrum. There is a subtle nondisplaced fracture involving the junction of the right superior pubic ramus and acetabulum anteriorly. Degenerative changes are noted throughout the thoracolumbar spine. Mild compression deformities are noted involving the lowest six thoracic vertebral bodies which are indeterminate in age but are likely chronic. 2. Some presacral increased density suggestive of hemorrhage from the adjacent sacral fracture. 3. Uncomplicated colonic diverticulosis. 4. Degenerative changes and scoliosis of the thoracolumbar spine are noted. Cervical Spine CT 05/09/18 10:01 CONCLUSION: 1. Mild degenerative changes. Anatomic alignment without fracture. Head CT 05/09/18 10:01 CONCLUSION: 1. Negative for an acute process . Shoulder x-ray: report reviewed, image reviewed (proximal humerus fracture) Shoulder CT: pending Hip x-ray: report reviewed, image reviewed Hip CT: report reviewed, image reviewed (right superior and inferior pubic rami fractures, nondisplaced sacral fracture) Assessment and Plan - Problem List (1) Fracture of humerus, right, closed Code(s): S42.301A - Unspecified fracture of shaft of humerus, right arm, initial encounter for closed fracture Status: Acute Onset Date: ~05/09/18 Qualifiers: Encounter type: initial encounter Humerus Location: proximal Fracture morphology: other fracture Fracture alignment: displaced Qualified Code(s): S42.291A - Other displaced fracture of upper end of right humerus, initial encounter for closed fracture (2) Fracture of multiple pubic rami Code(s): S32.599A - Other specified fracture of unspecified pubis, initial encounter for closed fracture Status: Acute Qualifiers: Encounter type: initial encounter Fracture type: closed Laterality: right Qualified Code(s): S32.591A - Other specified fracture of right pubis, initial encounter for closed fracture (3) Closed fracture of sacrum Code(s): S32.10XA - Unspecified fracture of sacrum, initial encounter for closed fracture Status: Acute Qualifiers: Encounter type: initial encounter Zone of sacrum fracture: zone I of sacrum Fracture alignment: nondisplaced Qualified Code(s): S32.110A - Nondisplaced Zone I fracture of sacrum, initial encounter for closed fracture - Assessment and Plan Assessment: 67 year old male with right proximal humerus fracture and right lateral compression I pelvic ring injury Plan: 1. Will plan for operative treatment of right proximal humerus fracture with Dr. Retana - likely 05/11 2. Nonoperative treatment of pelvic fractures 3. NWB RUE in sling, protected WBAT RLE with walker
--- NOTE | 2018-05-10 00:37 | CT ---
EXAM DATE: 05/09/2018 11:11 PM EDT AGE/SEX: 67 years / Male INDICATIONS: Evaluate fracture. CLINICAL DATA: This is the patient's initial encounter. Patient reports that signs and symptoms have been present for 1 day and indicates a pain score of 10/10. MEDICAL/SURGICAL HISTORY: None. None. RADIATION DOSE: 6.04 CTDI (mGy) ; Reconstructed from previous dataset, no dose COMPARISON: No prior exams available for comparison. TECHNIQUE: Multiple contiguous axial images were acquired using a multirow detector CT scanner witho ut contrast. Multiplanar reconstruction was performed in the sagittal and coronal planes. Using aut omated exposure control and adjustment of the mA and/or kV according to patient size, radiation dose was kept as low as reasonably achievable to obtain optimal diagnostic quality images. DICOM format i mage data is available electronically for review and comparison. FINDINGS: FINDINGS: Bones: There is a comminuted fracture of the proximal humerus. There are 3 parts with a slightly dis placed greater tuberosity, humeral head and humeral shaft. There is significant angulation of the hum eral head with respect to the shaft. The glenoid appears intact. Remaining visualized osseous structu res are intact. Joints: Mild degenerative changes of the acromioclavicular joint. Mild osteophytes. Soft Tissues: Grossly unremarkable. Other: No foreign bodies seen. CONCLUSION: 1. Comminuted displaced 3 part humeral fracture, as above. Electronically signed by: Jon Vora MD 05/10/2018 12:35 AM EDT
[2018-05-10] MEDS: Morphine Sulfate Inj 2 MG/ML Vial IV.PUSH PRN ×5 (02:15→18:44)
[2018-05-10] MEDS ORDERED: Chlorhexidine Gluconate 2% 1 Pack (2 Cloths) TOPICAL ONE (03:58)
[2018-05-10] MEDS ORDERED: Sodium Chlor 0.9% Inj 500 ML IV.SIG SCH (04:00)
[2018-05-10] MEDS ORDERED: Chlorhexidine Gluconate 2% 1 Pack (2 Cloths) TOPICAL PRN (04:00)
[2018-05-10] MEDS ORDERED: Chlorhexidine Gluconate 2% 1 Pack (2 Cloths) TOPICAL SCH (04:00)
[2018-05-10 06:32] LABS: Baso % (Auto) 0.4 % (0.0-2.0); Eos # (Auto) 0.1 th/mm3 (0.0-0.4); Eos % (Auto) 0.8 % (0.0-4.0); Hematocrit 31.6 % (39.0-51.0); Hemoglobin 10.8 gm/dL (13.0-17.0); Lymph # (Auto) 0.9 th/mm3 (1.0-4.8); Mean Corpuscular HGB Conc 34.1 % (32.0-36.0); Mean Corpuscular Hemoglobin 36.3 pg (27.0-34.0); Mean Corpuscular Volume 106.4 fL (80.0-100.0); Mono # (Auto) 0.5 th/mm3 (0.0-0.9); Mono % (Auto) 6.7 % (0.0-8.0); Neut % (Auto) 80.1 % (16.0-70.0); Platelet Count 132 th/mm3 (150-450); Red Blood Count 2.97 mil/mm3 (4.50-5.90); Red Cell Distribution Width 12.2 % (11.6-17.2); White Blood Count 7.5 th/mm3 (4.0-11.0)
[2018-05-10 07:07] LABS: Albumin 3.5 g/dL (3.4-5.0); Anion Gap 9 meq/L (5-15); Aspartate Aminotransferase 33 U/L (15-37); Blood Urea Nitrogen 13 mg/dL (7-18); Calcium 8.2 mg/dL (8.5-10.1); Carbon Dioxide 24.1 meq/L (21.0-32.0); Chloride 105 meq/L (98-107); Glomerular Filtration Rate Greater Than 89 mL/min (>89); Glucose,Random 113 mg/dL (74-106); Potassium 4.2 meq/L (3.5-5.1); Sodium 138 meq/L (136-145)
[2018-05-10 07:08] LABS: Alanine Aminotransferase 30 U/L (12-78)
[2018-05-10 07:11] LABS: Alkaline Phosphatase 59 U/L (45-117); Total Protein 6.4 g/dL (6.4-8.2)
[2018-05-10] MEDS: Docusate Sodium 100 MG Capsule PO SCH ×2 (08:11→21:45)
--- NOTE | 2018-05-10 11:44 | P.PN ---
Subjective Interval history: TRAUMA PTD: 1 Pt sitting up in bed. No distress noted. at bedside. Pt states, "I'm still in pain." "So, I am having surgery?" states that "the physician last night said she was going to get another scan." Informed pt and that Dr. Montano ordered a RIGHT shoulder CT, and that was completed last night. Pt states, "No I didn't. I haven't left this room since I got here at 1:30pm yesterday." Clarified CT scan of shoulder in e[facility] and the results. Pt continues to insist that he did not have any scans yesterday. "Unless they took me while I was unconscious or something." Spoke with bedside nurse to clarify further if pt went for CT scan per Dr. Montano's orders last night. Physical Exam Vital signs: Vital Signs 05/09/18 11:47 05/09/18 12:02 05/09/18 14:10 Temperature 98.4 F Pulse Rate 63 59 L Respiratory Rate 17 16 16 Blood Pressure 148/65 H 140/65 Pulse Oximetry 96 99 05/09/18 16:00 05/09/18 20:00 05/09/18 22:07 Temperature 98.2 F 98.5 F Pulse Rate 64 69 Respiratory Rate 16 17 17 Blood Pressure 145/68 H 120/64 Pulse Oximetry 98 93 L 05/09/18 23:05 05/10/18 05:03 05/10/18 07:45 Temperature 98.2 F 98.5 F Pulse Rate 57 L 56 L 56 L Respiratory Rate 17 18 Blood Pressure 115/59 L 133/65 Pulse Oximetry 95 96 05/10/18 08:00 05/10/18 09:00 05/10/18 10:06 Temperature 98.1 F Pulse Rate 57 L 58 L Respiratory Rate 16 Blood Pressure 119/66 Pulse Oximetry 95 95 05/10/18 10:13 Temperature Pulse Rate Respiratory Rate 14 Blood Pressure Pulse Oximetry Intake & Output 05/09/18 05/10/18 05/10/18 18:59 06:59 18:59 Weight 76.204 kg Other: # Voids 3 1 Date of Last Bowel Movement 05/09/18 05/09/18 05/09/18 Weight On Admission 76.204 kg Narrative: GENERAL: This is a 67-year-old male lying in bed. No distress noted. SKIN: Warm and dry. HEAD: Atraumatic. Normocephalic. EYES: PERRLA ENT: No nasal bleeding or discharge. Mucous membranes pink and moist. NECK: Trachea midline. No JVD. CARDIOVASCULAR: Regular rate and rhythm. RESPIRATORY: No accessory muscle use. Lungs are clear to auscultation. Breath sounds equal bilaterally. No distress or dyspnea. GASTROINTESTINAL: BS + x 4 quads. Abdomen soft, non-tender, nondistended. MUSCULOSKELETAL: Extremities without cyanosis, or edema. + RIGHT upper extremity in sling. Peripheral pulses x 4 extremities. Warm with good capillary refill and sensation. MAEW. NEUROLOGICAL: Awake and alert. Normal speech and pattern. Results - Labs CBC & Chem 7: 05/10/18 03:45 05/10/18 03:45 Laboratory Results - last 24 hr 05/10/18 05/10/18 03:45 03:45 WBC 7.5 RBC 2.97 L Hgb 10.8 L D Hct 31.6 L MCV 106.4 H MCH 36.3 H MCHC 34.1 RDW 12.2 Plt Count 132 L MPV 10.0 Neut % (Auto) 80.1 H Lymph % (Auto) 12.0 [place] % (Auto) 6.7 Eos % (Auto) 0.8 Baso % (Auto) 0.4 Neut # (Auto) 6.0 Lymph # (Auto) 0.9 L [place] # (Auto) 0.5 Eos # (Auto) 0.1 Baso # (Auto) 0.0 WBC Differential . Differential Comment Auto diff final Sodium 138 Potassium 4.2 Chloride 105 Carbon Dioxide 24.1 Anion Gap 9 BUN 13 Creatinine 0.85 Estimated GFR Greater than 89 Random Glucose 113 H Calcium 8.2 L Total Bilirubin 0.6 AST 33 ALT 30 Alkaline Phosphatase 59 Total Protein 6.4 Albumin 3.5 - Imaging Impressions Shoulder CT 05/09/18 00:00 CONCLUSION: 1. Comminuted displaced 3 part humeral fracture, as above. Assessment and Plan - Assessment (1) Fracture of humerus, right, closed Code(s): S42.301A - Unspecified fracture of shaft of humerus, right arm, initial encounter for closed fracture Status: Acute Onset Date: ~05/09/18 (2) Fracture of multiple pubic rami Code(s): S32.599A - Other specified fracture of unspecified pubis, initial encounter for closed fracture Status: Acute (3) Closed fracture of sacrum Code(s): S32.10XA - Unspecified fracture of sacrum, initial encounter for closed fracture Status: Acute - Plan [place]: This is a 67-year old male who sustained a fall. He fell off a ladder, approximately 10 feet. He landed on his right side. No LOC. INJURIES: RIGHT humerus fx - 3 part fx Chronic thoracic compression fxs RIGHT inferior and superior pubic ramus fx (non-op) RIGHT sacrum fx (non-op) RIGHT acetabulum fx (non-op) PMHx: CVA. HTN. Procedures: 05/11: Plan for OR with orthopedics. Consults: Orthopedics. Case management. Diet: Regular diet. Tolerating po diet. Encourage good po intake with each meal. Pulmonary: Encourage good pulmonary toileting. IS at bedside and pt encouraged to use. Rationale for use explained to patient, and verbalized understanding. PAIN Management: Percocet 5-7.5 mg q 4h. Morphine 2 mg q 3h for breakthrough pain. Activity: BR. Pt and OT ordered. (NWB RUE. WBAT RLE) GI prophylaxis: Protonix IV Bowel regimen: Colace. MOM. Lactulose PRN. LBM: 0 DVT prophylaxis: Mechanical VTE with SCDs. Chemical management TBD DC Planning: Case management consulted for assistance with final discharge disposition. Awaiting PT assessment for discharge planning. Emotional support provided to patient and family at bedside and plan of care discussed. Discussed with RN at bedside. Discussed pt condition and plan of care with collaborating trauma surgeon. Patient is hemodynamically stable and being managed on the med/surg floor. The trauma team will round each day, and evaluate plan of care on a daily basis. RIGHT humerus fx - 3 part fx Chronic thoracic compression fxs RIGHT inferior and superior pubic ramus fx (non-op) RIGHT sacrum fx (non-op) RIGHT acetabulum fx (non-op) Orthopedics consulted and assisting in management and care CT right shoulder -shows a 3 part fracture. 05/11: Plan for OR with orthopedics for right humerus Pelvic fractures will remain nonoperative Supportive care Pain management PT and OT ordered NWB RUE WBAT RLE Bowel regimen HTN HLD Vitals q 4h Resume home medications Lisinopril 10 mg QD Simvastatin 40 mg QD - Attending Attestation Patient seen and examined with the nurse practitioners, orthopedic input appreciated CT scan of the fractured shoulder was obtained, plan is to proceed with surgical intervention, patient was to be oriented and reassured that he is CT scan of his shoulder was done. There could be some baseline dementia and I will have the medical team to see the patient (1) Fracture of humerus, right, closed Qualifiers: Encounter type: initial encounter Humerus Location: proximal Fracture morphology: other fracture Fracture alignment: displaced Qualified Code(s): S42.291A - Other displaced fracture of upper end of right humerus, initial encounter for closed fracture (2) Fracture of multiple pubic rami Qualifiers: Encounter type: initial encounter Fracture type: closed Laterality: right Qualified Code(s): S32.591A - Other specified fracture of right pubis, initial encounter for closed fracture (3) Closed fracture of sacrum Qualifiers: Encounter type: initial encounter Zone of sacrum fracture: zone I of sacrum Fracture alignment: nondisplaced Qualified Code(s): S32.110A - Nondisplaced Zone I fracture of sacrum, initial encounter for closed fracture
[2018-05-10] MEDS: Pantoprazole Inj 40 MG Vial IV.PUSH SCH (13:34)
--- NOTE | 2018-05-10 17:17 | ECG ---
Date Performed: 05/10/2018 Time Performed: 04:32:04 PTAGE: 67 years EKG: Sinus bradycardia Extensive T wave changes may be due to myocardial ischemia Abnormal ECG NO PREVIOUS TRACING DOCTOR: Kash Angel Interpretating Date/Time 05/10/2018 17:13:09
[2018-05-11] MEDS: Morphine Sulfate Inj 2 MG/ML Vial IV.PUSH PRN ×2 (00:41→06:22)
[2018-05-11] MEDS ORDERED: Chlorhexidine Gluconate 2% 1 Pack (2 Cloths) TOPICAL ONE (03:36)
[2018-05-11] MEDS ORDERED: Metoprolol Tartrate 25 MG Tablet PO ONE (03:36)
[2018-05-11] MEDS ORDERED: Sodium Chlor 0.9% Inj 500 ML IV.SIG SCH (04:00)
[2018-05-11 04:54] LABS: Baso # (Auto) 0.1 th/mm3 (0.0-0.2); Baso % (Auto) 0.9 % (0.0-2.0); Eos # (Auto) 0.2 th/mm3 (0.0-0.4); Eos % (Auto) 2.6 % (0.0-4.0); Hematocrit 28.8 % (39.0-51.0); Hemoglobin 10.2 gm/dL (13.0-17.0); Lymph % (Auto) 16.9 % (9.0-44.0); Mean Corpuscular HGB Conc 35.3 % (32.0-36.0); Mean Corpuscular Hemoglobin 36.7 pg (27.0-34.0); Mean Corpuscular Volume 103.9 fL (80.0-100.0); Mono # (Auto) 0.4 th/mm3 (0.0-0.9); Mono % (Auto) 6.6 % (0.0-8.0); Neut # (Auto) 4.2 th/mm3 (1.8-7.7); Platelet Count 105 th/mm3 (150-450); Red Blood Count 2.77 mil/mm3 (4.50-5.90); White Blood Count 5.8 th/mm3 (4.0-11.0)
[2018-05-11 05:21] LABS: Alanine Aminotransferase 90 U/L (12-78); Albumin 3.1 g/dL (3.4-5.0); Anion Gap 7 meq/L (5-15); Aspartate Aminotransferase 170 U/L (15-37); Blood Urea Nitrogen 15 mg/dL (7-18); Calcium 8.1 mg/dL (8.5-10.1); Carbon Dioxide 25.6 meq/L (21.0-32.0); Chloride 103 meq/L (98-107); Glomerular Filtration Rate 86 mL/min (>89); Glucose,Random 100 mg/dL (74-106); Potassium 4.2 meq/L (3.5-5.1); Sodium 136 meq/L (136-145)
[2018-05-11 05:30] LABS: Alkaline Phosphatase 184 U/L (45-117); Total Protein 6.4 g/dL (6.4-8.2)
--- NOTE | 2018-05-11 07:56 | P.PNOP ---
Subjective Interval history: s/p right proximal humerus fx Physical Exam Vital signs: Vital Signs 05/10/18 08:00 05/10/18 09:00 05/10/18 10:06 Temperature 98.1 F Pulse Rate 57 L 58 L Respiratory Rate 16 Blood Pressure 119/66 Pulse Oximetry 95 95 05/10/18 10:13 05/10/18 12:00 05/10/18 16:00 Temperature 98.7 F 98.7 F Pulse Rate 59 L 65 Respiratory Rate 14 16 16 Blood Pressure 131/69 159/72 H Pulse Oximetry 97 98 05/10/18 20:00 05/10/18 22:15 05/11/18 00:00 Temperature 99.1 F 98.2 F Pulse Rate 66 61 Respiratory Rate 18 17 17 Blood Pressure 149/68 H 120/60 Pulse Oximetry 97 94 L 05/11/18 04:00 05/11/18 07:28 Temperature 98.5 F 98.8 F Pulse Rate 66 63 Respiratory Rate 18 18 Blood Pressure 126/66 169/70 H Pulse Oximetry 96 97 Intake & Output 05/10/18 05/11/18 05/11/18 18:59 06:59 18:59 Intake Total 600 / 600 Balance 600 / 600 Weight 77.8 kg Intake: Oral 600 / 600 Other: # Voids 3 Date of Last Bowel Movement 05/09/18 05/09/18 Narrative: RUE: +sling and swathe. nvi Results - Labs CBC & Chem 7: 05/11/18 03:49 05/11/18 03:49 Laboratory Results - last 24 hr 05/11/18 05/11/18 03:49 03:49 WBC 5.8 RBC 2.77 L Hgb 10.2 L Hct 28.8 L MCV 103.9 H MCH 36.7 H MCHC 35.3 RDW 12.0 Plt Count 105 L MPV 10.0 Neut % (Auto) 73.0 H Lymph % (Auto) 16.9 [place] % (Auto) 6.6 Eos % (Auto) 2.6 Baso % (Auto) 0.9 Neut # (Auto) 4.2 Lymph # (Auto) 1.0 [place] # (Auto) 0.4 Eos # (Auto) 0.2 Baso # (Auto) 0.1 WBC Differential . Differential Comment Auto diff final Sodium 136 Potassium 4.2 Chloride 103 Carbon Dioxide 25.6 Anion Gap 7 BUN 15 Creatinine 0.88 Estimated GFR 86 L Random Glucose 100 Calcium 8.1 L Total Bilirubin 0.5 AST 170 H ALT 90 H Alkaline Phosphatase 184 H Total Protein 6.4 Albumin 3.1 L Assessment and Plan - Problem List (1) Fracture of humerus, right, closed Code(s): S42.301A - Unspecified fracture of shaft of humerus, right arm, initial encounter for closed fracture Status: Acute Onset Date: ~05/09/18 Qualifiers: Encounter type: initial encounter Humerus Location: proximal Fracture morphology: other fracture Fracture alignment: displaced Qualified Code(s): S42.291A - Other displaced fracture of upper end of right humerus, initial encounter for closed fracture (2) Fracture of multiple pubic rami Code(s): S32.599A - Other specified fracture of unspecified pubis, initial encounter for closed fracture Status: Acute Qualifiers: Encounter type: initial encounter Fracture type: closed Laterality: right Qualified Code(s): S32.591A - Other specified fracture of right pubis, initial encounter for closed fracture (3) Closed fracture of sacrum Code(s): S32.10XA - Unspecified fracture of sacrum, initial encounter for closed fracture Status: Acute Qualifiers: Encounter type: initial encounter Zone of sacrum fracture: zone I of sacrum Fracture alignment: nondisplaced Qualified Code(s): S32.110A - Nondisplaced Zone I fracture of sacrum, initial encounter for closed fracture - Assessment and Plan Assessment: 67 year old male with right proximal humerus fracture and right lateral compression I pelvic ring injury surgery today with Dr Pruitt for ORIF of right proximal humerus fx [email or web address] Prescription Drug Monitoring Database has been queried and verified prior to prescribing the controlled substance. Acute pain exception. This patient has normal, predicted, physiological, and time limited response to an adverse mechanical stimulus associated with surgery, trauma, or acute illness as described in my notes. There is a lack of alternative treatment options other than to include the prescribed narcotic treatment for this condition.
[2018-05-11] MEDS ORDERED: Lidocaine PF 1% Inj 5 ML Syringe OTHER ONE ×2 (08:07→09:15)
[2018-05-11] MEDS: Lisinopril 10 MG Tablet PO SCH (08:41)
[2018-05-11] MEDS: Docusate Sodium 100 MG Capsule PO SCH (08:41)
[2018-05-11] MEDS ORDERED: Phenylephrine/NS 1000 MCG/10ML Syringe IV.PUSH ONE (09:15)
[2018-05-11] MEDS ORDERED: Morphine Inj 4 MG/ML Vial IV.PUSH PRN (09:27)
[2018-05-11] MEDS ORDERED: Post-op Orders (for Pharmacy) OTHER STA (09:27)
--- NOTE | 2018-05-11 09:30 | P.OP ---
- Preoperative Diagnosis (1) Fracture of humerus, right, closed Date of procedure: 05/11/18 Procedure: Open reduction internal fixation right proximal humerus Anesthesia: GETA Surgeon: Carrington Pruitt MD Arranger Assembler: Henok Mejia PA-C The surgical procedure was assisted by my physician ex assistant/program director. My P.A. presence was necessary throughout this case for the manipulation and positioning of the surgical extremity. My P.A. was assisting me throughout the duration of this procedure. The skill set of a physician ex assistant/program director was medically necessary to complete this procedure. During the surgical case the surgical aides teacher was working at the back table and the physician ex assistant/program director was directly assisting me. Operation and Findings: Implants used: Synthes Plan of activity: Sling and swath, Details of procedure: Patient was seen and evaluated preoperatively. Patient was found to have a displaced right proximal humerus fracture. The risks and benefits of surgical and nonsurgical options were discussed in detail and informed consent was obtained for surgery. Patient was brought to the operating room and placed on or table. IV sedation and GETA were administered by anesthesiologist. Antibiotics were given prior to incision. Operative arm and shoulder were prepped with alcohol followed by Hibiclens and draped usual sterile fashion. Timeout procedure was performed. Procedure began with a 5 inch incision over the anterior shoulder. Cephalic vein was identified. A deltopectoral approach was utilized. The fracture was now visualized. Soft tissue was retracted. A #5 FiberWire suture was placed into the rotator rotator cuff and greater tuberosity. Attention was now turned to reduction. Gentle traction was applied. The humeral shaft was reduced to the humeral head. Fracture was manipulated to achieve excellent reduction. Multiplanar fluoroscopy confirmed well aligned fracture. Multiple K wires were used to hold provisional fixation. A Synthes proximal humerus plate was selected. Plate was provisionally held in place K wires. 3.5 cortical screws were used to compress plate to bone. Fluoroscopy confirmed appropriate plate placement and fracture reduction. Multiple locking screws were now placed in the humeral head. Screws were predrilled and premeasured for appropriate length. Care was taken not to penetrate the articular surface. Additional screws were placed in the humeral shaft. The FiberWire suture was passed through the holes of the plate and sutured to the plate for additional stability. Final fluoroscopy revealed well aligned fracture with well-placed hardware. Wound was thoroughly irrigated. Fascia was closed with #1 Vicryl, subcutaneous tissues closed with 3-0 Vicryl, and skin was closed with fili. Sterile dressings were applied. Patient was placed into a sling. Patient was awakened and transferred to recovery in stable condition. Needle and sponge counts were correct.
[2018-05-11] MEDS ORDERED: fentaNYL Citrate Inj 100 MCG/2 ML Ampul ONE (09:59)
[2018-05-11] MEDS ORDERED: *morphine SULFATE 4 MG/ML PERIprocedure ONLY ONE ×3 (10:01→10:31)
--- NOTE | 2018-05-11 11:49 | P.PN ---
Subjective Interval history: TRAUMA PTD: 2 1000: In OR 1100: In OR 1500: Recently returned from OR/PACU. Patient remains painful. 1800: Called by charge nurse. just brought to staff's attention that the patient drinks 24 beers a day along with liquor. We will begin a Valium taper for EtOH withdrawal prevention. Physical Exam Vital signs: Vital Signs 05/10/18 12:00 05/10/18 16:00 05/10/18 20:00 Temperature 98.7 F 98.7 F 99.1 F Pulse Rate 59 L 65 66 Respiratory Rate 16 16 18 Blood Pressure 131/69 159/72 H 149/68 H Pulse Oximetry 97 98 97 05/10/18 22:15 05/11/18 00:00 05/11/18 04:00 Temperature 98.2 F 98.5 F Pulse Rate 61 66 Respiratory Rate 17 17 18 Blood Pressure 120/60 126/66 Pulse Oximetry 94 L 96 05/11/18 07:28 05/11/18 09:55 05/11/18 10:00 Temperature 98.8 F 98.8 F Pulse Rate 63 59 L 57 L Respiratory Rate 18 18 11 L Blood Pressure 169/70 H 159/66 H 157/68 H Pulse Oximetry 97 92 L 98 05/11/18 10:15 05/11/18 10:30 05/11/18 10:56 Temperature 98.4 F Pulse Rate 55 L 54 L Respiratory Rate 13 11 L 18 Blood Pressure 119/56 L 121/59 L Pulse Oximetry 92 L 95 05/11/18 10:59 05/11/18 11:26 Temperature 97.3 F L Pulse Rate 57 L Respiratory Rate 18 18 Blood Pressure 133/61 Pulse Oximetry 97 Intake & Output 05/10/18 05/11/18 05/11/18 18:59 06:59 18:59 Intake Total 600 / 600 500 / 500 Output Total 100 / 100 Balance 600 / 600 400 / 400 Weight 77.8 kg Intake: Oral 600 / 600 Anesthesia Amount 500 / 500 Output: Estimated Blood Loss 100 / 100 Other: # Voids 3 Date of Last Bowel Movement 05/09/18 05/09/18 05/09/18 Narrative: GENERAL: This is a 67-year-old male lying in bed. No distress noted. SKIN: Warm and dry. HEAD: Atraumatic. Normocephalic. EYES: PERRLA ENT: No nasal bleeding or discharge. Mucous membranes pink and moist. NECK: Trachea midline. No JVD. CARDIOVASCULAR: Regular rate and rhythm. RESPIRATORY: No accessory muscle use. Lungs are clear to auscultation. Breath sounds equal bilaterally. No distress or dyspnea. GASTROINTESTINAL: BS + x 4 quads. Abdomen soft, non-tender, nondistended. MUSCULOSKELETAL: Extremities without cyanosis, or edema. + RIGHT upper extremity in sling. Surgical dressing CDI. Peripheral pulses x 4 extremities. Warm with good capillary refill and sensation. MAEW. NEUROLOGICAL: Awake and alert. Normal speech and pattern. Results - Labs CBC & Chem 7: 05/12/18 03:46 05/12/18 03:46 Laboratory Results - last 24 hr 05/11/18 05/11/18 03:49 03:49 WBC 5.8 RBC 2.77 L Hgb 10.2 L Hct 28.8 L MCV 103.9 H MCH 36.7 H MCHC 35.3 RDW 12.0 Plt Count 105 L MPV 10.0 Neut % (Auto) 73.0 H Lymph % (Auto) 16.9 [place] % (Auto) 6.6 Eos % (Auto) 2.6 Baso % (Auto) 0.9 Neut # (Auto) 4.2 Lymph # (Auto) 1.0 [place] # (Auto) 0.4 Eos # (Auto) 0.2 Baso # (Auto) 0.1 WBC Differential . Differential Comment Auto diff final Sodium 136 Potassium 4.2 Chloride 103 Carbon Dioxide 25.6 Anion Gap 7 BUN 15 Creatinine 0.88 Estimated GFR 86 L Random Glucose 100 Calcium 8.1 L Total Bilirubin 0.5 AST 170 H ALT 90 H Alkaline Phosphatase 184 H Total Protein 6.4 Albumin 3.1 L Assessment and Plan - Assessment (1) Fracture of humerus, right, closed Code(s): S42.301A - Unspecified fracture of shaft of humerus, right arm, initial encounter for closed fracture Status: Acute Onset Date: ~05/09/18 (2) Fracture of multiple pubic rami Code(s): S32.599A - Other specified fracture of unspecified pubis, initial encounter for closed fracture Status: Acute (3) Closed fracture of sacrum Code(s): S32.10XA - Unspecified fracture of sacrum, initial encounter for closed fracture Status: Acute - Plan [place]: This is a 67-year old male who sustained a fall. He fell off a ladder, approximately 10 feet. He landed on his right side. No LOC. INJURIES: RIGHT humerus fx - 3 part fx Chronic thoracic compression fxs RIGHT inferior and superior pubic ramus fx (non-op) RIGHT sacrum fx (non-op) RIGHT acetabulum fx (non-op) PMHx: CVA. HTN. Procedures: 05/11: ORIF RIGHT humerus Consults: Orthopedics. Case management. Diet: Regular diet. Tolerating po diet. Encourage good po intake with each meal. Pulmonary: Encourage good pulmonary toileting. IS at bedside and pt encouraged to use. Rationale for use explained to patient, and verbalized understanding. PAIN Management: Percocet 5-7.5 mg q 4h. Morphine 2 mg q 3h for breakthrough pain. Activity: OOB. Pt and OT ordered. (NWB RUE. WBAT RLE) GI prophylaxis: Protonix IV Bowel regimen: Colace. MOM. Lactulose PRN. LBM: 0 DVT prophylaxis: Mechanical VTE with SCDs. Chemical management TBD DC Planning: Case management consulted for assistance with final discharge disposition. PT is recommending short-term rehab. Emotional support provided to patient and family at bedside and plan of care discussed. Discussed with RN at bedside. Discussed pt condition and plan of care with collaborating trauma surgeon. Patient is hemodynamically stable and being managed on the med/surg floor. The trauma team will round each day, and evaluate plan of care on a daily basis. RIGHT humerus fx - 3 part fx Chronic thoracic compression fxs RIGHT inferior and superior pubic ramus fx (non-op) RIGHT sacrum fx (non-op) RIGHT acetabulum fx (non-op) Orthopedics consulted and assisting in management and care CT right shoulder -shows a 3 part fracture. 05/11: ORIF RIGHT humerus Pelvic fractures will remain nonoperative Supportive care Pain management PT and OT ordered NWB RUE WBAT RLE Bowel regimen HTN HLD Vitals q 4h Resume home medications Lisinopril 10 mg QD Simvastatin 40 mg QD EtOH informed staff that patient drinks 24 beers a day, along with liquor Begin Valium taper -for EtOH withdrawal prevention Monitor closely for DTs Keep patient close to nursing station for close monitoring Frequent checks (1) Fracture of humerus, right, closed Qualifiers: Encounter type: initial encounter Humerus Location: proximal Fracture morphology: other fracture Fracture alignment: displaced Qualified Code(s): S42.291A - Other displaced fracture of upper end of right humerus, initial encounter for closed fracture (2) Fracture of multiple pubic rami Qualifiers: Encounter type: initial encounter Fracture type: closed Laterality: right Qualified Code(s): S32.591A - Other specified fracture of right pubis, initial encounter for closed fracture (3) Closed fracture of sacrum Qualifiers: Encounter type: initial encounter Zone of sacrum fracture: zone I of sacrum Fracture alignment: nondisplaced Qualified Code(s): S32.110A - Nondisplaced Zone I fracture of sacrum, initial encounter for closed fracture
--- NOTE | 2018-05-11 13:38 | XR ---
EXAM DATE: 05/11/2018 12:00 AM EDT AGE/SEX: 67 years / Male INDICATIONS: ORIF right proximal humerus fracture. CLINICAL DATA: This is the patient's subsequent encounter. Patient reports that signs and symptoms h ave been present for 2 days and indicates a pain score of Nonresponsive. MEDICAL/SURGICAL HISTORY: Non-responsive. Non-responsive. [place] [facility] [place]. . FINDINGS: Hardware is noted within the right proximal humerus status post ORIF. The hardware appears to be adeq uate in position. CONCLUSION: Status post ORIF of right proximal humeral fracture. Electronically signed by: Singh Lundberg MD 05/11/2018 1:37 PM EDT
[2018-05-11] MEDS: Pantoprazole Inj 40 MG Vial IV.PUSH SCH (13:43)
[2018-05-11] MEDS: Calcium/Vitamin D 250/125 MG Tablet PO SCH ×2 (13:43→17:15)
[2018-05-11] MEDS: ceFAZolin 2 GM Premix Inj 2 GM/50 ML PIGGYBACK IV.SIG SCH (16:15)
[2018-05-11] MEDS ORDERED: diazePAM 5 MG Tablet PO ONE ×2 (19:30→21:00)
[2018-05-11] MEDS: Senna/Docusate Sodium 8.6/50 MG Tablet PO SCH (20:27)
[2018-05-12] MEDS: ceFAZolin 2 GM Premix Inj 2 GM/50 ML PIGGYBACK IV.SIG SCH ×2 (01:39→08:39)
[2018-05-12 05:06] LABS: Baso % (Auto) 0.4 % (0.0-2.0); Eos # (Auto) 0.2 th/mm3 (0.0-0.4); Eos % (Auto) 2.2 % (0.0-4.0); Hematocrit 25.8 % (39.0-51.0); Hemoglobin 9.2 gm/dL (13.0-17.0); Lymph # (Auto) 0.9 th/mm3 (1.0-4.8); Mean Corpuscular HGB Conc 35.8 % (32.0-36.0); Mean Corpuscular Volume 103.3 fL (80.0-100.0); Mean Platelet Volume 10.4 fL (7.0-11.0); Mono # (Auto) 0.5 th/mm3 (0.0-0.9); Neut # (Auto) 6.4 th/mm3 (1.8-7.7); Neut % (Auto) 80.4 % (16.0-70.0); Platelet Count 112 th/mm3 (150-450)
[2018-05-12 05:21] LABS: Albumin 2.8 g/dL (3.4-5.0); Anion Gap 7 meq/L (5-15); Aspartate Aminotransferase 51 U/L (15-37); Blood Urea Nitrogen 13 mg/dL (7-18); Calcium 7.9 mg/dL (8.5-10.1); Carbon Dioxide 27.8 meq/L (21.0-32.0); Chloride 102 meq/L (98-107); Glomerular Filtration Rate Greater Than 89 mL/min (>89); Glucose,Random 112 mg/dL (74-106); Potassium 4.2 meq/L (3.5-5.1); Sodium 137 meq/L (136-145)
[2018-05-12 05:22] LABS: Alanine Aminotransferase 57 U/L (12-78)
[2018-05-12 05:24] LABS: Alkaline Phosphatase 145 U/L (45-117); Total Protein 6.4 g/dL (6.4-8.2)
--- NOTE | 2018-05-12 06:43 | P.PNOP ---
Subjective Interval history: POD 1 s/p ORIF right proximal humerus s/p right inferior rami fx doing well. pain controlled. out of bed Physical Exam Vital signs: Vital Signs 05/11/18 07:28 05/11/18 09:55 05/11/18 10:00 Temperature 98.8 F 98.8 F Pulse Rate 63 59 L 57 L Respiratory Rate 18 18 11 L Blood Pressure 169/70 H 159/66 H 157/68 H Pulse Oximetry 97 92 L 98 05/11/18 10:15 05/11/18 10:30 05/11/18 10:56 Temperature 98.4 F Pulse Rate 55 L 54 L Respiratory Rate 13 11 L 18 Blood Pressure 119/56 L 121/59 L Pulse Oximetry 92 L 95 05/11/18 10:59 05/11/18 11:26 05/11/18 13:43 Temperature 97.3 F L Pulse Rate 57 L Respiratory Rate 18 18 18 Blood Pressure 133/61 Pulse Oximetry 97 05/11/18 14:13 05/11/18 16:00 05/11/18 16:14 Temperature 97.8 F Pulse Rate 73 Respiratory Rate 18 18 18 Blood Pressure 109/53 L Pulse Oximetry 94 L 05/11/18 16:44 05/11/18 19:56 05/11/18 20:00 Temperature 97.9 F Pulse Rate 63 Respiratory Rate 18 18 18 Blood Pressure 139/65 Pulse Oximetry 96 05/12/18 00:34 05/12/18 03:12 Temperature 98.2 F 98.2 F Pulse Rate 64 61 Respiratory Rate 18 18 Blood Pressure 114/61 127/60 Pulse Oximetry 92 L 96 Intake & Output 05/11/18 05/11/18 05/12/18 06:59 18:59 06:59 Intake Total 1150 / 1150 480 / 480 Output Total 100 / 100 550 / 550 Balance 1050 / 1050 -70 / -70 Weight 77.8 kg 80.7 kg Intake: IV 50 / 50 Ancef 2 GM Premix Inj 2 gm In 50 / 50 50 ml @ 100 mls/hr IV.SIG Q8H MIKHAIL Rx#:[id number] Oral 600 / 600 480 / 480 Anesthesia Amount 500 / 500 Output: Urine 550 / 550 Estimated Blood Loss 100 / 100 Other: # Voids 3 Date of Last Bowel Movement 05/09/18 05/09/18 05/09/18 # Bowel Movements 0 Narrative: RUE: dressings clean and dry. intact. +sling. full sensation to median/ulnar nerve. full extension of wrist and fingers Results - Labs CBC & Chem 7: 05/12/18 03:46 05/12/18 03:46 Laboratory Results - last 24 hr 05/12/18 05/12/18 03:46 03:46 WBC 8.0 RBC 2.50 L Hgb 9.2 L Hct 25.8 L MCV 103.3 H MCH 37.0 H MCHC 35.8 RDW 12.0 Plt Count 112 L MPV 10.4 Neut % (Auto) 80.4 H Lymph % (Auto) 11.0 Osborne % (Auto) 6.0 Eos % (Auto) 2.2 Baso % (Auto) 0.4 Neut # (Auto) 6.4 Lymph # (Auto) 0.9 L [place] # (Auto) 0.5 Eos # (Auto) 0.2 Baso # (Auto) 0.0 WBC Differential . Differential Comment Auto diff final Sodium 137 Potassium 4.2 Chloride 102 Carbon Dioxide 27.8 Anion Gap 7 BUN 13 Creatinine 0.83 Estimated GFR Greater than 89 Random Glucose 112 H Calcium 7.9 L Total Bilirubin 0.4 AST 51 H ALT 57 Alkaline Phosphatase 145 H Total Protein 6.4 Albumin 2.8 L - Imaging Impressions Shoulder X-Ray 05/11/18 00:00 CONCLUSION: Status post ORIF of right proximal humeral fracture. Assessment and Plan - Problem List (1) Fracture of humerus, right, closed Code(s): S42.301A - Unspecified fracture of shaft of humerus, right arm, initial encounter for closed fracture Status: Acute Onset Date: ~05/09/18 Qualifiers: Encounter type: initial encounter Humerus Location: proximal Fracture morphology: other fracture Fracture alignment: displaced Qualified Code(s): S42.291A - Other displaced fracture of upper end of right humerus, initial encounter for closed fracture (2) Fracture of multiple pubic rami Code(s): S32.599A - Other specified fracture of unspecified pubis, initial encounter for closed fracture Status: Acute Qualifiers: Encounter type: initial encounter Fracture type: closed Laterality: right Qualified Code(s): S32.591A - Other specified fracture of right pubis, initial encounter for closed fracture (3) Closed fracture of sacrum Code(s): S32.10XA - Unspecified fracture of sacrum, initial encounter for closed fracture Status: Acute Qualifiers: Encounter type: initial encounter Zone of sacrum fracture: zone I of sacrum Fracture alignment: nondisplaced Qualified Code(s): S32.110A - Nondisplaced Zone I fracture of sacrum, initial encounter for closed fracture - Assessment and Plan 1) Right Inferior Pubic Rami Fx - nonop -WBAT 2) Right Proximal Humerus Fx - POD 1 -NWB -sling -pendulums -daily dressing changes POD 2 with xeroform/primapore -DC home with [facility] today -f/u with [facility]in or [facility] in 2 [facility] Prescription Drug Monitoring Database has been queried and verified prior to prescribing the controlled substance. Acute pain exception. This patient has normal, predicted, physiological, and time limited response to an adverse mechanical stimulus associated with surgery, trauma, or acute illness as described in my notes. There is a lack of alternative treatment options other than to include the prescribed narcotic treatment for this condition.
--- NOTE | 2018-05-12 06:45 | P.DCO ---
- Physical Therapy Physical Therapy: Gait training, Safety evaluation Hip: Hip fracture, Protocol: Right, Progress to weight bearing Right Lower Extremity Weight Bearing: Weight bearing as tolerated - Occupational Therapy Right Upper Extremity Weight Bearing: Non-weight bearing Right Upper Extremity Range of Motion: Pendular - Nursing Dressing changes: Daily dressing change, Xeroform, Coverderm/Primapore - Certification Need for Home Health services: I have seen patient Aly Zavala on 05/12/18. My clinical findings support the need for the requested home health care services because: Need for Home Health Services: Limited mobility due to disease progression Homebound Certification: I certify that my clinical findings support that this patient is homebound because: Homebound Certification: Post-op weakness
[2018-05-12] MEDS: diazePAM 5 MG Tablet PO SCH ×4 (08:39→21:18)
[2018-05-12] MEDS: Lisinopril 10 MG Tablet PO SCH (08:39)
[2018-05-12] MEDS: Senna/Docusate Sodium 8.6/50 MG Tablet PO SCH ×2 (08:39→21:18)
[2018-05-12] MEDS: Calcium/Vitamin D 250/125 MG Tablet PO SCH ×3 (08:39→17:31)
--- NOTE | 2018-05-12 08:40 | P.NPEVAL ---
Patient History - Record/History Review Reason for Referral: The patient is a 67 year old right handed man status post fall from ladder on . Head CT was within normal limits. Additional injuries included pelvic fracture and sacrum fracture. Since his admission and transfer to the floor, he has demonstrated increasing confusion and follow-up examination revealed a fairly extensive EtOH history prompting further evaluation and treatment. He is now referred for baseline neurobehavioral status examination per trauma protocol to assess cognitive, behavioral and emotional aspects of the injury and to provide treatment recommendations. [facility] - History History Provided By: Patient - Medical History Medical History: Medical History (Last Reviewed 05/12/18 @ 08:44 by Bar Johnson) CVA (cerebral vascular accident) HTN (hypertension) - Tobacco History Second Hand Smoke Exposure: No Smoking Status: Never smoker - Alcohol History How Often Do You Have a Drink Containing Alcohol: 2 to 4 times a month - Substance Use History Substance History: No History of Abuse - Travel History Recent Travel in the [facility] Within the Last 8 Weeks: No Recent Travel Out of the Country Within the Last 8 Weeks: No - Immunization History Tetanus Immunization: <5 Years Hx Influenza Vaccine This Season: No Medications Active Medications Hydrocodone Bitart/Acetaminophen ([place] 10/325) 1 tab PO Q3H PRN PRN Reason: Pain Scale 3-10 Last Admin: 05/12/18 06:44 Dose: 1 tab Al Hydroxide/Mg Hydroxide (Milk Of Reece Bowles) 30 ml PO BID [facility] Last Admin: 05/11/18 20:27 Dose: 30 ml Calcium/Vitamin D (Oscal With D 250/125 Mg) 1 tab PO TID [facility] Last Admin: 05/11/18 17:15 Dose: 1 tab Diazepam (Valium) 5 mg PO QID [facility] Stop: 05/12/18 21:01 Diazepam (Valium) 5 mg PO TID [facility] Stop: 05/13/18 18:01 Diazepam (Valium) 5 mg PO BID [facility] Stop: 05/14/18 21:01 Diazepam (Valium) 5 mg PO HS [facility] Stop: 05/18/18 21:01 Diphenhydramine HCl (Benadryl) 25 mg PO Q6H PRN PRN Reason: ITCHING Enalaprilat (Vasotec Inj) 1.25 mg IV.PUSH Q8H PRN PRN Reason: Blood pressure 180/95 Cefazolin Sodium/Dextrose (Ancef 2 Gm Premix Inj) 2 gm in 50 mls @ 100 mls/hr IV.SIG Q8H [facility] Stop: 05/12/18 09:29 Last Infusion: 05/12/18 07:47 Dose: Infused Lactated Ringer's (Lr 1000 Ml Inj) 1,000 mls @ 50 mls/hr IV.CONT .Q20H [facility] Last Admin: 05/12/18 07:47 Dose: Not Given Lactulose (Lactulose Liq) 30 ml PO DAILY PRN PRN Reason: CONSTIPATION Lisinopril (Prinivil) 10 mg PO DAILY [facility] Last Admin: 05/11/18 08:41 Dose: Not Given Miscellaneous Information (Mis Nursing Information) 0 each OTHER UNSCH PRN PRN Reason: SEE LABEL COMMENTS Stop: 05/12/18 09:59 Morphine Sulfate (Morphine Inj) 4 mg IV.PUSH Q3H PRN PRN Reason: BREAKTHROUGH PAIN Ondansetron HCl (Zofran Inj) 4 mg IV.PUSH Q6H PRN PRN Reason: NAUSEA OR VOMITING Ondansetron HCl (Zofran Odt) 4 mg PO Q6H PRN PRN Reason: NAUSEA OR VOMITING Pantoprazole Sodium (Protonix Inj) 40 mg IV.PUSH Q24H [facility] Last Admin: 05/11/18 13:43 Dose: 40 mg Pravastatin Sodium (Pravachol) 80 mg PO QPM [facility] Last Admin: 05/11/18 17:15 Dose: 80 mg Senna/Docusate Sodium (Juana-Colace) 1 tab PO BID [facility] Last Admin: 05/11/18 20:27 Dose: 1 tab Sennosides (Senokot) 17.2 mg PO BID PRN PRN Reason: Moderate Constipation Sodium Chloride (Ns Flush) 2 ml IV.FLUSH BID [facility] Last Admin: 05/11/18 22:22 Dose: Not Given Sodium Chloride (Ns Flush) 2 ml IV.FLUSH PRN PRN PRN Reason: FLUSH AFTER USING IV ACCESS Vitamin D (Vitamin D3) 5,000 unit PO DAILY [facility] Mental Status Assessment - Mental Status Orientation: oriented to: Self Mental Status: WFL: Language/interactions, Impaired: Thought processing, Attention, Learning/memory Adjustment/Coping Assessment - Adjustment/Coping Adjustment/Coping: Moderate: Awareness, Insight - Observation In terms of emotional functioning, the patient demonstrated challenges. This patient has demonstrated increasing signs of agitation, impulsivity or disinhibition, but there was no remarkable evidence of a formal thought disorder or psychosis. He wants to go home, but he will have to go to rehab given his medical conditions. There was no evidence of depression or anxiety. Thought content was free from suicidal, homicidal or paranoid ideation, and thought processes were illogical and somewhat tangential. The patients mood was anxious, and his affect was intense. The patient appears to possess limited insight and awareness into their situation and within the limits of this brief evaluation, limited judgment. - Goals/Team Members LTG Status: Deferred STG Status: Deferred Team Members: Neuropsychologist Behavior - Behavior Agitation: Mild - Observation Behaviorally, the patient demonstrated increasing signs of agitation, impulsivity or disinhibition. There was no remarkable evidence of a formal thought disorder or psychosis. - Goals LTG Status: Deferred STG Status: Deferred - Team Members Team Members: Neuropsychologist Diagnosis/Discharge Plan - Diagnosis (1) Alcohol dependence in controlled environment Status: Acute Impression: 67 year old man s/p fall from ladder on 05/09/2018 with pelvic and sacral fractures. No TBI. He does have an alcohol dependence issue that is being followed and subsequently treated. Maximizing Acute Care Outcome: It is recommended that the patient be monitored for emergent behavioral impulsivity as the medical condition evolves. Additionally, the patients family is experiencing ongoing issues of adjustment given the traumatic nature of the injury, and they may benefit from ongoing psychological assistance. At this point in the recovery process, the patient does have questionable cognitive capacity as the patient is appears unable to understand a situation and its likely consequences, and he has questionable ability to manipulate information rationally. Cognitive capacity will be assessed throughout the recovery process. - Discharge Planning Anticipated Problems: Ongoing areas of concern will include behavioral impulsivity, lack of insight and judgment, which is expected to improve with time and treatment. Treatment Plan: This clinician will continue to follow with you throughout the course of this patients acute care treatment, and I will be available to meet with the patient s family/support system to facilitate their understanding and the ongoing care of their family member. The goals of neuropsychological intervention shall be both educational and supportive to the family/support system as is deemed clinically appropriate. Thank you for the opportunity to assist in this patients care. Efraín Oliveros, Ph.D., ABPP Board Certified in Clinical Neuropsychology [place] [employer] [place] Licensed Psychologist #[id number]
[2018-05-12] MEDS: Enoxaparin Inj 30 MG/0.3 ML Syringe SQ SCH ×2 (11:59→21:18)
[2018-05-12] MEDS: Pantoprazole Inj 40 MG Vial IV.PUSH SCH ×2 (14:07→14:30)
--- NOTE | 2018-05-12 15:04 | P.DS ---
Date of admission: 05/09/18 11:40 Primary care physician: UNKNOWN Brief History from admission: 67 y.o male fell from the ladder 10 feet,c/o pain right humerus and pelvis was level 2 trauma alert-worked up by the ER.HD normal,neuro intact. DS: Diagnosis - Discharge Diagnosis (1) Fracture of humerus, right, closed Status: Acute (2) Fracture of multiple pubic rami Status: Acute (3) Closed fracture of sacrum Status: Acute DS: Medications - Discharge Medications Prescriptions: hydrocodone-acetaminophen [[place]] 1 tab PO Q4H #40 tab DS: Summary Hospital Course: [place]: Fell off a ladder from approx 10 feet landing on his right side. No LOC. INJURIES: RIGHT humerus fx RIGHT inferior and superior pubic ramus fx (non-op) RIGHT sacrum fx (non-op) RIGHT acetabulum fx (non-op) PMHx: CVA. HTN. 05/11: ORIF RIGHT humerus RIGHT humerus fx, RIGHT inferior and superior pubic ramus fx, RIGHT sacrum fx, RIGHT acetabulum fx Orthopedics consulted, F/U outpatient 05/11: ORIF RIGHT humerus Pelvic fractures are nonoperative Pain control Bowel regimen PT and OT ordered NWB RUE WBAT RLE Lovenox 30 BID HTN, HLD Lisinopril 10 mg QD Simvastatin 40 mg QD Resume home Plavix EtOH abuse Continue Valium taper -for EtOH withdrawal prevention Abstain from ETOH Plan of care discussed with patient and RN at bedside. Collaborating Trauma surgeon agrees with plan. Case management consulted to assist with discharge planning. Patient is clear from trauma surgery standpoint to safely discharge inpatient rehab. - Time Spent with Patient Total time spent providing and/or coordinating discharge services: Greater than 30 minutes - Quality: VTE Deep Vein Thrombosis/Pulmonary Embolism Present on Admission: No Exam Vital signs: Vital Signs 05/11/18 16:00 05/11/18 16:14 05/11/18 16:44 Temperature 97.8 F Pulse Rate 73 Respiratory Rate 18 18 18 Blood Pressure 109/53 L Pulse Oximetry 94 L 05/11/18 19:56 05/11/18 20:00 05/12/18 00:34 Temperature 97.9 F 98.2 F Pulse Rate 63 64 Respiratory Rate 18 18 18 Blood Pressure 139/65 114/61 Pulse Oximetry 96 92 L 05/12/18 03:12 05/12/18 08:00 05/12/18 08:41 Temperature 98.2 F 98.8 F Pulse Rate 61 63 Respiratory Rate 18 16 18 Blood Pressure 127/60 125/68 Pulse Oximetry 96 94 L 05/12/18 09:00 05/12/18 09:14 05/12/18 09:44 Temperature Pulse Rate 66 Respiratory Rate 18 18 Blood Pressure Pulse Oximetry 05/12/18 11:57 05/12/18 12:00 05/12/18 12:27 Temperature 98 F Pulse Rate 62 Respiratory Rate 18 17 18 Blood Pressure 129/65 Pulse Oximetry 93 L 05/12/18 14:30 Temperature Pulse Rate Respiratory Rate 18 Blood Pressure Pulse Oximetry Intake & Output 05/11/18 05/12/18 05/12/18 18:59 06:59 18:59 Intake Total 1150 / 1150 480 / 480 100 / 100 Output Total 100 / 100 550 / 550 Balance 1050 / 1050 -70 / -70 100 / 100 Weight 80.7 kg Intake: IV 50 / 50 100 / 100 Ancef 2 GM Premix Inj 2 gm In 50 / 50 100 / 100 50 ml @ 100 mls/hr IV.SIG Q8H MIKHAIL Rx#:[id number] Oral 600 / 600 480 / 480 Anesthesia Amount 500 / 500 Output: Urine 550 / 550 Estimated Blood Loss 100 / 100 Other: # Voids 3 Date of Last Bowel Movement 05/09/18 05/09/18 05/09/18 # Bowel Movements 0 Narrative: GENERAL: 67-year-old well-nourished, well developed male sitting up in bed in no acute distress. SKIN: Warm and dry. HEAD: Normocephalic. EYES: Pupils equal and round. No scleral icterus. ENT: No nasal bleeding or discharge. Mucous membranes pink and moist. NECK: Trachea midline. No JVD. CARDIOVASCULAR: Regular rate and rhythm. RESPIRATORY: No accessory muscle use. Lungs clear to auscultation. Breath sounds equal bilaterally. GASTROINTESTINAL: Abdomen soft, non-tender, nondistended. + BS. MUSCULOSKELETAL: Extremities without cyanosis, or edema. RUE sling and swath. RUE dressing in place. MAEW, + perfused NEUROLOGICAL: Awake and alert. Normal speech. Results Procedures completed during hospitalization: 05/11: ORIF RIGHT humerus Labs on day of discharge: Labs from last 24 hours 05/12/18 05/12/18 03:46 03:46 WBC 8.0 RBC 2.50 L Hgb 9.2 L Hct 25.8 L MCV 103.3 H MCH 37.0 H MCHC 35.8 RDW 12.0 Plt Count 112 L MPV 10.4 Neut % (Auto) 80.4 H Lymph % (Auto) 11.0 Baker % (Auto) 6.0 Eos % (Auto) 2.2 Baso % (Auto) 0.4 Neut # (Auto) 6.4 Lymph # (Auto) 0.9 L Baker # (Auto) 0.5 Eos # (Auto) 0.2 Baso # (Auto) 0.0 WBC Differential . Differential Comment Auto diff final Sodium 137 Potassium 4.2 Chloride 102 Carbon Dioxide 27.8 Anion Gap 7 BUN 13 Creatinine 0.83 Estimated GFR Greater than 89 Random Glucose 112 H Calcium 7.9 L Total Bilirubin 0.4 AST 51 H ALT 57 Alkaline Phosphatase 145 H Total Protein 6.4 Albumin 2.8 L - Impressions ITS Impressions Chest CT 05/09/18 00:00 CONCLUSION: 1. Acute comminuted displaced fracture involving the right proximal humerus. 2. Degenerative changes and scoliosis of the thoracic spine are noted. 3. Multiple mild compression deformities are noted involving the lowest six thoracic vertebral bodies which are likely chronic. Clinical correlation is recommended. Hip X-Ray 05/09/18 00:00 CONCLUSION: Negative for hip fracture Ramus fracture. Shoulder CT 05/09/18 00:00 CONCLUSION: 1. Comminuted displaced 3 part humeral fracture, as above. Chest X-Ray 05/09/18 09:55 CONCLUSION: Lungs are under aerated. Probable fracture right humerus. Shoulder films are suggested. Pelvis X-Ray 05/09/18 09:55 CONCLUSION: Ramus fracture on the right. Anatomic alignment about both hips. Abdomen/Pelvis CT 05/09/18 10:01 CONCLUSION: 1. Acute comminuted fracture involving the inferior pubic ramus on the right. There is also an acute fracture involving the right sacrum. There is a subtle nondisplaced fracture involving the junction of the right superior pubic ramus and acetabulum anteriorly. Degenerative changes are noted throughout the thoracolumbar spine. Mild compression deformities are noted involving the lowest six thoracic vertebral bodies which are indeterminate in age but are likely chronic. 2. Some presacral increased density suggestive of hemorrhage from the adjacent sacral fracture. 3. Uncomplicated colonic diverticulosis. 4. Degenerative changes and scoliosis of the thoracolumbar spine are noted. Cervical Spine CT 05/09/18 10:01 CONCLUSION: 1. Mild degenerative changes. Anatomic alignment without fracture. Head CT 05/09/18 10:01 CONCLUSION: 1. Negative for an acute process . Shoulder X-Ray 05/11/18 00:00 CONCLUSION: Status post ORIF of right proximal humeral fracture. Discharge Plan - Discharge Disposition Patient Disposition: 61 Rehab Inpatient - Discharge Condition Condition: Stable - Discharge Order Discharge Orders: Discharge Order (Routine); Ordered 05/12/18 Ordered By: Kelechi Conner Orthopedic Clear for Discharge (Routine); Ordered 05/12/18 Ordered By: Henok Mejia - Physicians Team Primary Care Provider: UNKNOWN, Attending Provider: Rossy Aponte Other Providers: Caitlin Montano MD ; Mike Del Rio MD ; Johnny Shelton MD ; [employer] ; Sabas Cordero MD ; Hoda Kumar ARNP ; Olu Chaney MD ; Rossy Aponte MD ; Kelechi Conner ARNP ; Karmen Topete MD ; Carrington Pruitt MD ; Efraín Oliveros, PhD ; [facility],Agency ; [facility],[place]
--- NOTE | 2018-05-13 06:34 | P.PNOP ---
Subjective Interval history: POD 2 s/p ORIF right proximal humerus s/p right rami fx doing well. improving. Physical Exam Vital signs: Vital Signs 05/12/18 08:00 05/12/18 08:41 05/12/18 09:00 Temperature 98.8 F Pulse Rate 63 66 Respiratory Rate 16 18 Blood Pressure 125/68 Pulse Oximetry 94 L 05/12/18 09:14 05/12/18 09:44 05/12/18 11:57 Temperature Pulse Rate Respiratory Rate 18 18 18 Blood Pressure Pulse Oximetry 05/12/18 12:00 05/12/18 12:27 05/12/18 14:30 Temperature 98 F Pulse Rate 62 Respiratory Rate 17 18 18 Blood Pressure 129/65 Pulse Oximetry 93 L 05/12/18 15:00 05/12/18 16:00 05/12/18 17:31 Temperature 98.1 F Pulse Rate 63 Respiratory Rate 18 16 18 Blood Pressure 124/60 Pulse Oximetry 95 05/12/18 18:50 05/12/18 20:00 05/12/18 21:05 Temperature 97.8 F 98.2 F Pulse Rate 62 57 L 62 Respiratory Rate 16 16 Blood Pressure 117/60 131/62 Pulse Oximetry 97 95 05/13/18 00:00 05/13/18 04:00 Temperature 98.4 F 98.4 F Pulse Rate 60 61 Respiratory Rate 18 18 Blood Pressure 122/60 146/70 H Pulse Oximetry 94 L 94 L Intake & Output 05/12/18 05/12/18 05/13/18 06:59 18:59 06:59 Intake Total 480 / 480 1400 / 1400 120 / 120 Output Total 550 / 550 Balance -70 / -70 1400 / 1400 120 / 120 Weight 80.7 kg 80.7 kg Intake: IV 100 / 100 Ancef 2 GM Premix Inj 2 gm In 100 / 100 50 ml @ 100 mls/hr IV.SIG Q8H MIKHAIL Rx#:[id number] Oral 480 / 480 1300 / 1300 120 / 120 Output: Urine 550 / 550 Other: # Voids 4 1 Date of Last Bowel Movement 05/09/18 05/09/18 05/12/18 # Bowel Movements 0 1 Narrative: RUE: dressing clean and dry. intact. NVI. RLE: good movement of hip. minimal discomfort. nvi Results - Labs CBC & Chem 7: 05/12/18 03:46 10/04/18 03:46 - Procedures 05/11: ORIF RIGHT humerus Assessment and Plan - Problem List (1) Fracture of humerus, right, closed Code(s): S42.301A - Unspecified fracture of shaft of humerus, right arm, initial encounter for closed fracture Status: Acute Onset Date: ~05/09/18 Qualifiers: Encounter type: initial encounter Humerus Location: proximal Fracture morphology: other fracture Fracture alignment: displaced Qualified Code(s): S42.291A - Other displaced fracture of upper end of right humerus, initial encounter for closed fracture (2) Fracture of multiple pubic rami Code(s): S32.599A - Other specified fracture of unspecified pubis, initial encounter for closed fracture Status: Acute Qualifiers: Encounter type: initial encounter Fracture type: closed Laterality: right Qualified Code(s): S32.591A - Other specified fracture of right pubis, initial encounter for closed fracture (3) Closed fracture of sacrum Code(s): S32.10XA - Unspecified fracture of sacrum, initial encounter for closed fracture Status: Acute Qualifiers: Encounter type: initial encounter Zone of sacrum fracture: zone I of sacrum Fracture alignment: nondisplaced Qualified Code(s): S32.110A - Nondisplaced Zone I fracture of sacrum, initial encounter for closed fracture - Assessment and Plan 1) Right Inferior Pubic Rami Fx - nonop -WBAT 2) Right Proximal Humerus Fx - POD 2 -NWB -sling -pendulums -daily dressing changes POD 2 with xeroform/primapore -DC home with [facility] -f[facility]u with [facility] Prescription Drug Monitoring Database has been queried and verified prior to prescribing the controlled substance. Acute pain exception. This patient has normal, predicted, physiological, and time limited response to an adverse mechanical stimulus associated with surgery, trauma, or acute illness as described in my notes. There is a lack of alternative treatment options other than to include the prescribed narcotic treatment for this condition.
--- NOTE | 2018-05-13 08:26 | P.PNNPSY ---
- Progress Notes/Response to Treatment Contents of Sessions: Adjustment, Level of consciousness Time with Patient: 15 minutes Premorbid Psychological Status: Premorbid Cognitive, Emotional and Behavioral Status: Tenuous. The patient has high school years of education and is essentially retired from the work force. The patient has no prior psychiatric difficulties, as described above. Substance abuse history is significant for ETOH dependence, presently in a controlled environment and at risk for MAGGY. Behavioral Reactions of Patient and Family/Support System: Stable. The patient s family is experiencing ongoing issues of adjustment given the nature of the injury, and this aspect of recovery will require ongoing monitoring. Emotional/Behavioral Status of Patient and Family/Support System: Stable. Pertinent issues, if appropriate to this patients clinical care, are described in detail above. Maximizing Acute Care Outcome: It is recommended that the patient be monitored for emergent behavioral impulsivity as the medical condition evolves. Additionally, the patients family is experiencing ongoing issues of adjustment given the traumatic nature of the injury, and they may benefit from ongoing psychological assistance. At this point in the recovery process, the patient does have questionable cognitive capacity as the patient is appears unable to understand a situation and its likely consequences, and he has questionable ability to manipulate information rationally. Cognitive capacity will be assessed throughout the recovery process. Anticipated Problems: Ongoing areas of concern will include behavioral impulsivity, lack of insight and judgment, which is expected to improve with time and treatment. Treatment Plan: This clinician will continue to follow with you throughout the course of this patients acute care treatment, and I will be available to meet with the patient s family/support system to facilitate their understanding and the ongoing care of their family member. The goals of neuropsychological intervention shall be both educational and supportive to the family/support system as is deemed clinically appropriate. Additionally, I would recommend a referral to Dr. Celestin for ongoing patient and family adjustment issues if they are coming to [place]. Disinhibition Score: 14.00 Aggression Score: 14.00 Lability Score: 14.00 Agitated Behavior Total Score: 14 Impression: 67 year old man s/p fall from ladder on 05/09/2018 with pelvic and sacral fractures. No TBI. He does have an alcohol dependence issue that is being followed and subsequently treated. Progress Note Narrative: PTD 4. This patient awaits transfer to acute rehab for his injuries, which was denied, and so he will go to SNF. He remains on a Valium taper to manage MAGGY symptoms. No issues of agitation/restlessness with ABS of 14 (14,14,14). I will follow. - Diagnosis (1) Alcohol dependence in controlled environment Status: Acute
[2018-05-13] MEDS: Lisinopril 10 MG Tablet PO SCH (10:19)
[2018-05-13] MEDS: Senna/Docusate Sodium 8.6/50 MG Tablet PO SCH (10:19)
[2018-05-13] MEDS: Enoxaparin Inj 30 MG/0.3 ML Syringe SQ SCH (10:19)
[2018-05-13] MEDS: diazePAM 5 MG Tablet PO SCH ×3 (10:19→17:09)
[2018-05-13] MEDS: Calcium/Vitamin D 250/125 MG Tablet PO SCH ×3 (10:19→17:09)
[2018-05-13] MEDS: Pantoprazole Inj 40 MG Vial IV.PUSH SCH ×2 (13:54→15:35)
[2018-05-13 17:20] VITALS: BP 126/61; PULSE 68; RESP 14; TEMP 98.5; O2SAT 95
[2018-05-14] MEDS ORDERED: diazePAM 5 MG Tablet PO SCH (09:00)
[2018-05-15] MEDS ORDERED: diazePAM 5 MG Tablet PO SCH (21:00)
== END 2018-05-13 18:14 ==
LOC: NEPI 09:54 → NEDA 11:40 → EDBD 11:40 → N06 14:00
PROVIDERS: ADMIT Surgery Trauma Surgery; ATTEND Surgery Trauma Surgery